=== PATIENT | female | born 1990 | race Caucasian/White ===

== ENCOUNTER 2022-06-01 10:57 | Emergency (ER) | payer OTHER, SELFPAY ==
--- NOTE | ~2022-06-01 | US_ITS ---
EXAMINATION: US OB <=14 wk fetus w TV DATE: 06/01/2022 12:05 INDICATION: Vaginal bleeding during first trimester TECHNIQUE: Real-time pelvic transabdominal and transvaginal ultrasound was performed. COMPARISON: None. FINDINGS: The uterus measures 7.1 x 3.1 x 4.3 cm. No intrauterine gestational sac is identified. The endometrial thickness measures 6 mm The right ovary measures 3.8 x 2.2 x 1.7 cm. The left ovary measu res 2.8 x 1.7 x 2.2 cm. There is normal vascular flow in the ovaries. There is trace free fluid in th e pelvis. IMPRESSION: 1. of unknown location. Although no intrauterine gestational sac is seen, this may be due t o early gestation. If the patient is clinically stable, recommend followup with serial beta-hCG and u ltrasound. Reviewed, dictated and finalized at location B. IMPRESSION: 1. of unknown location. Although no intrauterine gestational sac is s een, this may be due to early gestation. If the patient is clinically stable, r ecommend followup with serial beta-hCG and ultrasound.
[2022-06-01 11:01] VITALS: BP 148/83; PULSE 95; RESP 15; TEMP 36.4; O2SAT 100
--- NOTE | 2022-06-01 11:18 | PC.NURSE ---
EDP at bedside to assess pt.
--- NOTE | 2022-06-01 11:21 | PC.NURSE ---
EDP at bedside to assess pt.
--- NOTE | 2022-06-01 11:22 | ED.FEMALEGU ---
HPI - Female Genitourinary General Chief complaint: Vaginal Bleeding Stated complaint: preg vag bleed Time Seen by Provider: 06/01/22 11:07 History of Present Illness HPI Narrative: Patient is a 32-year-old G1, P0 female who is currently about 6 weeks by her last menstrual cycle (04/16) here for evaluation of vaginal bleeding for the past day. States that she likens the bleeding to a menstrual cycle with some blood clots. Patient reports some diffuse lower abdominal cramping. States that she called her OB office, Dr. Ledezma, who recommended ED evaluation if her bleeding continues. She has not had an ultrasound yet to confirm IUP. Denies any syncope, lightheadedness. Related Data Allergies Allergy/AdvReac Type Severity Reaction Status Date / Time No Known Allergies Allergy Verified 06/01/22 11:22 Review of Systems Review of Systems: Gen: Denies fevers or chills Eyes: Denies eye pain or visual change ENT: Denies congestion Respiratory: Denies shortness of breath or cough CV: Denies chest pain or palpitations GI: Reports lower abdominal pain. Denies nausea, emesis or diarrhea : Reports vaginal bleeding. Denies burning, urgency, frequency or hematuria Musculoskeletal: Denies back pain or muscle pain Neuro: Denies numbness, tingling, weakness or focal weakness Skin: Denies rash Except as documented, all other systems reviewed and negative Exam Narrative: APPEARANCE: Well appearing, no pain in distress, well-nourished. Head: Normocephalic and atraumatic. EYES: PERRLA/EOMI, conjunctivae clear NOSE: No nasal drainage EARS: External ear normal in appearance THROAT: Oropharynx is clear. Mucous membranes are moist. NECK: Supple. No adenopathy, no masses. RESPIRATORY: Airway patent, respirations nonlabored. Clear to auscultation bilaterally, no rales, rhonchi, wheezing. CARDIOVASCULAR: Regular rate and rhythm without murmurs, rubs, or gallops. ABDOMINAL: Normoactive bowel sounds. Soft, nontender, nondistended. No rebound tenderness or guarding. : Exam performed with buncher machine Lanie. Cervical os is closed, moderate amount of blood noted in vaginal vault with no clots. MUSCULOSKELETAL: Extremities are warm and well-perfused. Moves all extremities well. No edema. NEURO: Normal speech. No focal neurologic deficits. SKIN: Skin is warm and dry. No rashes. PSYCHIATRIC: Normal affect/mood. Course Vital Signs Vital signs: Vital Signs Temperature 97.5 F L 06/01/22 11:01 Pulse Rate 95 06/01/22 11:01 Respiratory Rate 15 06/01/22 11:01 Blood Pressure 148/83 H 06/01/22 11:01 Pulse Oximetry 100 06/01/22 11:01 Temperature 97.5 F L 06/01/22 11:01 Pulse Rate 95 06/01/22 11:01 Respiratory Rate 15 06/01/22 11:01 Blood Pressure 148/83 H 06/01/22 11:01 Pulse Oximetry 100 06/01/22 11:01 MDM - Female Genitourinary MDM Narrative Medical decision making narrative: 32-year-old female who is currently about 6 weeks here for evaluation of vaginal bleeding and lower abdominal cramping for the past day. Here, she is nontoxic-appearing, no abdominal tenderness on exam, cervical os is closed with moderate amount of blood in the vaginal vault. Her quant is only 13, and there was no visualized on the ultrasound. She is A+, no indication for RhoGAM. Likely miscarriage. Discussed case with patient's OB Dr. Ledezma, who recommended repeat hCG and he will see in office next week. Informed patient of results and provided anticipatory guidance, gave her reasons to return to the ED and she voiced understanding. Lab Data Result diagrams: 06/01/22 12:01 Labs: Lab Results 06/01/22 06/01/22 06/01/22 Range/Units 12:01 12:01 12:01 WBC 8.2 (4.5-10.0) K/mm3 RBC 4.71 (4.2-5.4) M/mm3 Hgb 14.3 (12.0-15.0) g/dL Hct 43.3 (37.0-47.0) % MCV 91.9 (80-100) fl MCH 30.4 (26-34) pg MCHC 33.0 (32-36) g/dl RDW 12.6 (11.5-14.5) % Plt Count 293
--- NOTE | 2022-06-01 11:33 | PC.NURSE ---
Patient off unit to US.
[2022-06-01 12:08] LABS: Basophils Percent Auto 0.2 % (0.2-1.2); Eosinophils Percent Auto 0.4 % (0-4.4); Hematocrit 43.3 % (37.0-47.0); Hemoglobin 14.3 g/dL (12.0-15.0); Immature Granulocyte Absolute 0.02 K/mm3 (0.00-0.031); Immature Granulocyte Percent A 0.2 % (0-0.5); Lymphocytes Percent Auto 25.6 % (18.3-44.2); Mean Corpuscular Hemoglobin 30.4 pg (26-34); Mean Corpuscular Volume 91.9 fl (80-100); Mean Platelet Volume 10.4 fl (7.4-10.4); Monocytes Absolute Auto 0.5 K/mm3 (0.1-0.6); Monocytes Percent Auto 5.6 % (2.6-8.5); Neutrophils Absolute Auto 5.6 K/mm3 (1.3-6.7); Platelet Count Result 293 k/mm3 (150-375); Red Blood Count 4.71 M/mm3 (4.2-5.4); Red Cell Distribution Width 12.6 % (11.5-14.5); White Blood Count 8.2 K/mm3 (4.5-10.0)
[2022-06-01 12:35] LABS: Beta HCG Quantitative 13.79 mIU/ML
== END 2022-06-01 13:29 | disposition home or self-care (01) ==
PROVIDERS: Physician Assistant; Emergency Provider Emergency Medicine
DX: O20.9 Hemorrhage in early pregnancy, unspecified (principal); Z3A.01 Less than 8 weeks gestation of pregnancy
CPT/HCPCS: 36415; 76801; 76817; 84702; 85025; 85461; 99284

== ENCOUNTER 2022-06-04 06:59 | Outpatient (CLI) | payer OTHER, SELFPAY ==
[2022-06-04 07:57] LABS: Beta HCG Quantitative 2.54 mIU/ML
== END 2022-06-04 07:00 | disposition home or self-care (01) ==
LOC: ANHLAB 07:00
PROVIDERS: Visit Provider Physician Assistant
DX: O20.9 Hemorrhage in early pregnancy, unspecified (principal); Z3A.00 Weeks of gestation of pregnancy not specified
CPT/HCPCS: 36415; 84702

== ENCOUNTER 2022-10-14 16:56 | Outpatient (CLI) | payer OTHER, SELFPAY ==
[2022-10-14 17:54] LABS: Beta HCG Quantitative 569.58 mIU/ML
== END 2022-10-14 16:57 | disposition home or self-care (01) ==
LOC: ANHLAB 16:57
PROVIDERS: Visit Provider Obstetrics & Gynecology
DX: N91.2 Amenorrhea, unspecified (principal)
CPT/HCPCS: 36415; 84702

== ENCOUNTER 2022-10-18 07:09 | Outpatient (CLI) | payer OTHER, SELFPAY | END 2022-10-18 07:10 | disposition home or self-care (01) | LOC: ANHLAB 07:10 | PROVIDERS: Visit Provider Obstetrics & Gynecology | DX: N91.2 Amenorrhea, unspecified (principal) | CPT/HCPCS: 36415; 84702 ==

== ENCOUNTER 2022-11-02 15:52 | Outpatient (RCR) | payer OTHER, SELFPAY ==
[2022-11-02 16:07] LABS: Basophils Percent Auto 0.3 % (0.2-1.2); Eosinophils Absolute Auto 0.1 K/mm3 (0-0.3); Eosinophils Percent Auto 0.5 % (0-4.4); Hematocrit 38.9 % (37.0-47.0); Hemoglobin 13.1 g/dL (12.0-15.0); Immature Granulocyte Absolute 0.03 K/mm3 (0.00-0.031); Immature Granulocyte Percent A 0.3 % (0-0.5); Lymphocytes Absolute Auto 2.89 K/mm3 (0.9-3.2); Mean Corpuscular HGB Conc 33.7 g/dl (32-36); Mean Corpuscular Hemoglobin 30.5 pg (26-34); Mean Corpuscular Volume 90.5 fl (80-100); Mean Platelet Volume 10.2 fl (7.4-10.4); Monocytes Absolute Auto 0.6 K/mm3 (0.1-0.6); Monocytes Percent Auto 5.5 % (2.6-8.5); Neutrophils Absolute Auto 7.5 K/mm3 (1.3-6.7); Neutrophils Percent Auto 67.4 % (45.5-73.1); Platelet Count Result 263 k/mm3 (150-375); Red Cell Distribution Width 12.1 % (11.5-14.5); White Blood Count 11.1 K/mm3 (4.5-10.0)
[2022-11-02 16:57] LABS: Hepatitis B Surface Antigen Negative (Negative)
[2022-11-02 17:03] LABS: HIV 1/2 Ab P24 Ag Result Negative (Negative)
[2022-11-03 16:15] LABS: Rapid Plasma Reagin Non-Reactive (NonReactive)
== END 2023-01-31 23:59 | disposition home or self-care (01) ==
LOC: ANHLAB 15:52
PROVIDERS: Visit Provider Student in an Organized Health Care Education/Training Program
DX: Z11.4 Encounter for screening for human immunodeficiency virus [HIV] (principal); N91.2 Amenorrhea, unspecified
CPT/HCPCS: 36415; 84702; 85025; 86592; 86644; 86703; 86747; 86787; 86850; 86900; 86901; 87086; 87340; G0432

== ENCOUNTER 2023-04-02 07:29 | Outpatient (CLI) | payer OTHER, SELFPAY ==
[2023-04-02 08:59] LABS: Hematocrit 36.6 % (37.0-47.0); Hemoglobin 12.2 g/dL (12.0-15.0); Mean Corpuscular HGB Conc 33.3 g/dl (32-36); Mean Corpuscular Hemoglobin 31.1 pg (26-34); Mean Corpuscular Volume 93.4 fl (80-100); Mean Platelet Volume 10.1 fl (7.4-10.4); Platelet Count Result 225 k/mm3 (150-375); Red Blood Count 3.92 M/mm3 (4.2-5.4); White Blood Count 11.6 K/mm3 (4.5-10.0)
[2023-04-02 09:09] LABS: Glucose 1 Hour PP 50gm Dose 120 mg/dL
[2023-04-02 09:51] LABS: HIV 1/2 Ab P24 Ag Result Negative (Negative)
== END 2023-04-02 07:30 | disposition home or self-care (01) ==
LOC: ANHLAB 07:30
PROVIDERS: Visit Provider Student in an Organized Health Care Education/Training Program
DX: Z34.90 Encounter for supervision of normal pregnancy, unspecified, unspecified trimester (principal)
CPT/HCPCS: 36415; 82947; 85027; 86703; G0432

== ENCOUNTER 2023-06-21 17:01 | Inpatient (IN) | payer OTHER, SELFPAY ==
[2023-06-21] VITALS (16 sets, daily range): BP systolic 110–125; BP diastolic 74–90; PULSE 72–95; TEMP 36.3–36.8; BMI 34.4
--- NOTE | 2023-06-21 18:00 | LDADM ---
This patient, Ree Fang, was admitted to Labor/Delivery/Recovery 103 on 06/21/23 at 17:01. Plans for labor, pain management and were discussed with patient. Patient/family oriented to hospital policies and general routines including ID bracelet, bed and alarms, visiting hours, pain management, procedures, bathroom and other care routines, personal items, smoking policy, room service/diet and guest tray routines, security routines, and visiting hours. Patient/Family are encouraged to report perceived risks to care and to ask questions if they do not understand what they are told or what they should do. See OBIX for further documentation.
--- NOTE | 2023-06-21 18:18 | WPDANESEPP ---
Anes - Eval Pre Procedure Procedure: labor epidural Date/Time: 06/21/23 18:18 Surgeon: lizbet Preop Diagnosis: pain during labor Pre Op Diagnosis: Induction of Labor Patient Data Age: 33 Gender: F Height: 1.68 m Weight: 97 kg Last Vital Signs Temp 36.8 C 06/21/23 17:42 Pulse 82 06/21/23 18:15 BP 119/79 06/21/23 18:15 Allergies Allergy/AdvReac Type Severity Reaction Status Date / Time No Known Allergies Allergy Verified 06/20/23 09:47 Home Medications Medication Instructions Recorded Confirmed Type vitamins-iron fumarate 65 1 tablet PO DAILY 06/07/22 05/23/23 History mg iron-folic acid 1 mg tablet Laboratory Tests 06/21/23 17:30 WBC Pending RBC Pending Hgb Pending Hct Pending MCV Pending MCH Pending MCHC Pending RDW Pending Plt Count Pending MPV Pending Immature Gran % (Auto) Pending Neut % (Auto) Pending Lymph % (Auto) Pending [place] % (Auto) Pending Eos % (Auto) Pending Baso % (Auto) Pending Lymph # (Auto) Pending [place] # (Auto) Pending Eos # (Auto) Pending Baso # (Auto) Pending Abs Immat Gran (auto) Pending Absolute Neuts (auto) Pending Absolute Nucleated RBC Pending Nucleated RBC % Pending RPR Pending Rubella IgG Antibody Pending Patient hx anesthesia problems: none Family hx anesthesia problems: none Results Review: All pre-operative results and documents have been reviewed as part of the pre-operative evaluation. [facility] Past Medical History Medical History (Updated 06/21/23 @ 18:19 by Hoa Sal CRNA) Amenorrhea IUP (intrauterine ), incidental Obesity (BMI 30-39.9) Surgical History Surgical History H/O removal of cyst cyst removed from chest on left side / Benign Family History Family History Father Hypertension Social History Social History Smoking status: Never smoker Second hand tobacco smoke exposure: No Alcohol intake: never Substance use: never Lack of Transportation: No Lack of Food: Never True Current Housing: I Have Housing Concerned About Future Housing: No Difficulty Paying Gas/Electric Bills: No Difficulty Paying for Meds: No Currently Unemployed: No Education: Bachelor's Degree Difficulty w/ Childcare or Family Care: No Living arrangements: with family Occupation/Education: occupation Gender identity (if verbalized by the patient): Female Sexual Orientation (if Verbalized by the Patient): Straight or Heterosexual Spiritual care concerns: No Exam Day of Procedure 06/21/23 18:18
[2023-06-21 18:20] LABS: Basophils Percent Auto 0.2 % (0.2-1.2); Eosinophils Absolute Auto 0.3 K/mm3 (0-0.3); Hematocrit 34.3 % (37.0-47.0); Hemoglobin 11.5 g/dL (12.0-15.0); Immature Granulocyte Absolute 0.12 K/mm3 (0.00-0.031); Immature Granulocyte Percent A 0.9 % (0-0.5); Lymphocytes Absolute Auto 2.25 K/mm3 (0.9-3.2); Lymphocytes Percent Auto 17.6 % (18.3-44.2); Mean Corpuscular HGB Conc 33.5 g/dl (32-36); Mean Corpuscular Hemoglobin 30.7 pg (26-34); Mean Corpuscular Volume 91.7 fl (80-100); Mean Platelet Volume 11.7 fl (7.4-10.4); Monocytes Absolute Auto 0.7 K/mm3 (0.1-0.6); Monocytes Percent Auto 5.7 % (2.6-8.5); Neutrophils Absolute Auto 9.4 K/mm3 (1.3-6.7); Neutrophils Percent Auto 73.6 % (45.5-73.1); Platelet Count Result 207 k/mm3 (150-375); Red Blood Count 3.74 M/mm3 (4.2-5.4); White Blood Count 12.8 K/mm3 (4.5-10.0)
[2023-06-21] MEDS: DINOPROSTONE 10 MG VAG INSERT VAGINAL (20:00)
[2023-06-22] VITALS (124 sets, daily range): BP systolic 89–144; BP diastolic 62–109; PULSE 65–197; TEMP 36.3–37.2; O2SAT 83–100
[2023-06-22] MEDS: miSOPROStol 25 MCG TABLET VAGINAL (07:08)
--- NOTE | 2023-06-22 08:01 | WPDHPUPDATE1 ---
History and Physical Update Update Date/Time: 06/22/23 08:01 33 yo at 40w2d who presents for IOL. Pt's has been uncomplicated thus far. History and Physical has been reviewed, including an updated exam of the patient. There are NO changes in the patient's condition. Risks, benefits, and alternatives have been discussed and questions answered. Patient agrees to proceed with procedure. A/P: admit to L&D routine admission orders Rh+ GBS neg plan for cervidil IOL continuous EFM
[2023-06-22] MEDS: OXYTOCIN 30 UNITS/NS 500 ML 30 UNITS/500 ML BAG IV CONT (11:21)
[2023-06-22] MEDS: LACTATED RINGERS 1,000 ML 125 ML IV CONT ×4 (11:21→23:39)
[2023-06-22 13:53] LABS: Rapid Plasma Reagin Non-Reactive (NonReactive)
[2023-06-22] MEDS: SODIUM CHLORIDE 0.9% IV 300 ML 180 ML I-UTERINE (23:03)
[2023-06-23] VITALS (110 sets, daily range): BP systolic 103–149; BP diastolic 49–110; PULSE 78–156; RESP 16; TEMP 36.9–38.1; O2SAT 84–100
--- NOTE | 2023-06-23 06:29 | PM.OBPRVD ---
OB - Delivery Note Procedure Procedure: Patient pushed for a spontaneous vaginal delivery. Body cord was noted x 1 and reduced on the perineum. The fetus was delivered atraumatically and placed on the maternal abdomen. The cord was clamped and cut after 1 minute of life. The cord was double clamped and cut and a segment of cord was collected for cord gases. Cord blood was collected for blood type and Coomb's testing. The placenta delivered spontaneously and was noted to be intact. The perineum was inspected and there was a 2nd degree perineal laceration. The laceration was repaired with 2-0 vicryl in the usual fashion. The uterus was firm and good hemostasis was noted. The patient and fetus were stable in the delivery room. Induction method: Per Cervidil Protocol Delivery augmentation: Rupture of Membranes and Pitocin Delivery monitor: External FHT Route of delivery: Episiotomy description: None Laceration Description: Perineal - 2nd Degree Delivery repair: vicryl Specimen: No Quantitative Blood Loss (ml): 500 Anesthesia type: Epidural Disposition: Floor () Complications: No immediate complications Baby Date of : 06/23/23 Time of : 06:06 Weeks of gestation at delivery: 40 Infant gender: Male presentation: vertex position: Right Occiput Anterior Placenta delivery description: Spontaneous Cord Vessel Description: 3 Vessels, Tight and Around Body score one minute: 8 score five minutes: 9 AMG Delivery Billing Delivery Delivery: Delivery Charge
[2023-06-23] MEDS: miSOPROStol 200 MCG TABLET 1000 MCG RECTAL (06:33)
[2023-06-23] MEDS: OXYTOCIN 30 UNITS/NS 500 ML 30 UNITS/500 ML BAG 125 UNITS IV CONT (06:39)
--- NOTE | 2023-06-23 09:45 | PC.NURSE ---
Patient transferred to post room #278 via wheelchair. Support person present. Oriented to unit, room, information board, rooming in, admission packet and security measures. Patient verbalizes understanding.
--- NOTE | 2023-06-23 15:28 | PC.NURSE ---
[phone] Introductions were made, then consulted with patient to assess needs related to . Resources provided for inpatient and outpatient services with the feeding sheet, mom/baby guide and name written on the white board. Reviewed [id number] benefits and watching for feeding cues visuals. Mother voiced understanding of information and will call if there is a request for assistance. Reported to the primary RN. [phone] Consult requested. Mother led the conversation with her?plans to feed?her infant and the?experience so far. Mother works well with her with encouragement. Parents are undressing their to encourage wakefulness. Encouraged stimulating with massage touch, changing positions to encourage wakefulness, burping and checking the diaper. was given time upright [id number] on mother's chest to practice self attaching. Infant latched well to the left breast with mother in the laid-back cross cradle position. Mother denies pain and states there is sensitivity rated 2 on 0-10 pain scale. Education given to the parent of how to visualize suck/swallow ratios and listen for drinking at the breast which is demonstrating. Infant self detached after 10-15 minutes. Left nipple was slightly misshaped. Mother is encouraged to practice different positioning while infant is learning the optimal latching. Infant was moved upright [id number] with mother until feeding cues are visualized. Mother is open to practicing the football positioning. Reviewed positioning and ear, shoulder, hip alignment, supporting the breast to facilitate a deep latch, asymmetrical latch (off-center), leading with the chin with a big, open, wide gape and body close to mother. latches well but at times latches more to the nipple and parents were given education and demonstration of how to position mother, and support breast to encourage deep latching with areola to protect the nipple. Infant latched optimally to the right breast in football position. Education given to mother of how to visualize suck/swallow ratios and listen for drinking at the breast. was able to maintain latch without discomfort to mother. Nipple care reviewed with optimal latch and good positioning. self detached after 10-15 minutes. Nipple was very slightly misshaped and mother was encouraged to latch deep with changing positions each feeding to protect the nipple while learning. Reviewed good handwashing when or touching the breast/nipples to prevent infection. Resources used to facilitate learning were used with the tool, mom and baby guide. Mother voiced understanding of skin to skin, stimulating with massage touch, responsive feedings, hand expressed colostrum, talking to infant to encourage if it has been 2 -2.5 hours since the start of the last , to call if does not latch, or if there is discomfort with . Resources provided for inpatient/outpatient with feeding sheet, name remains on the communication board and the mom/baby guide. Parents voiced understanding of information, demonstrated learning and will call if there is a request for assistance. Reported to the Primary RN.
[2023-06-23] MEDS: DOCUSATE SODIUM 100 MG CAPSULE PO (18:25)
[2023-06-23] MEDS: POLYSACCHARIDE IRON COMPLEX 150 MG CAPSULE PO (18:25)
[2023-06-23] MEDS: ACETAMINOPHEN 325 MG TABLET 650 MG PO (18:26)
--- NOTE | 2023-06-23 18:39 | PM.OBDSVD ---
DS: Admitting Diagnosis Discharge Date 06/24/23 Admitting Diagnosis intrauterine at term DS: Discharge Diagnosis Discharge Diagnosis (1) Supervision of high risk , unspecified, unspecified trimester: Code(s): O09.90 - Supervision of high risk , unspecified, unspecified trimester Status: Acute OB - DS: Summary OB Procedures : None OB Procedures Intrapartum: Spontaneous Vag Delivery OB Procedures: : None Status at Discharge Functional status at discharge: independent ambulation Overall status at discharge: patient is back to baseline Time Spent with Patient Time attestation: Total time spent providing and/or coordinating discharge services: Time spent: Less than 30 minutes Exam Const: General: comfortable and no acute distress Resp: Effort & Inspection: normal respiratory effort Auscultation: clear to auscultation bilaterally Cardio: Rate: regular rate GI: GI Palp: Yes Soft to palpation Auscultation: normal bowel sounds Other: Fundus firm below umbilicus Psych: Appearance: grossly normal Mental Status: mental status grossly normal Affect: normal affect Discharge Plan Discharge Discharging Clinician: Robi Ledezma Patient Disposition: Home, Self-Care Activity: as tolerated and pelvic rest Diet: regular Discharge Instructions: Education: Mom and Baby Guide Given to: Mother Follow-Up: Call your delivering provider's office for an appointment to be seen in: 6 Weeks Mom and baby should come to the [facility] for the follow-up appointment. Appointment Date/Time: June 27, 2023 at 11:00 am What to expect at your follow-up visit: Blood Pressure Check Call [phone] if you are unable to keep your appointment time. BREAST CARE: * Wear a snug supportive bra. * For engorgement discomfort: Breast Feeding: * Apply warm moist washcloths * Express milk as needed to relieve engorgement * Wear loose clothing * For sore nipples: * Identify correct latch-on * Apply warm moist washcloths before and after nursing * Air dry nipples after nursing * May apply Lansinoh cream to nipples EPISIOTOMY/PERINEAL CARE: * Until bleeding stops, use your roger bottle after urinating * Change your pad frequently throughout the day * You may take sitz baths several times a day (fill your bathtub with warm water and soak for 20 minutes.) Do NOT bathe in the water * No tub baths until seen by your physician - You may shower ACTIVITY: * Rest as much as possible. * Do not exercise or lift anything heavier than your baby (such as laundry or other children.) * Avoid stairs or driving as much as possible. * Do not put anything into the vagina. No douching, tampons, or sexual activity until seen by physician. NOTIFY PHYSICIAN IF YOU HAVE ANY QUESTIONS OR IF ANY OF THE FOLLOWING SYMPTOMS OCCUR: * If your episiotomy or incision becomes red, swollen, or more painful than what you have experienced in the hospital. * If your vaginal bleeding becomes foul smelling. * If your vaginal bleeding becomes more heavy than a period or if your bleeding changes from pink to bright red. However, you may pass an occasional walnut-sized clot once or twice for the first week . * If you experience a sharp, shooting pain in you calves. * If you discover a hard, reddened area on your breast or if you experience flu-like symptoms. DIET: * Eat regular, well-balanced meals. * Drink plenty of fluids daily. If , drink to thirst. Patient viewed the discharge video Mother & Baby Care, The First Two Weeks . Patient was given the opportunity and encouraged to ask questions. Patient verbalized understanding of information shared and has been given the mother/baby guide for home reference. Patient Instructions: Antibiotic Form, Vaginal Delivery (DC) St
[2023-06-24] VITALS: BP 118/72; PULSE 101; RESP 16; TEMP 36.7; O2SAT 100
[2023-06-24 04:15] VITALS: BP 119/73; PULSE 92; RESP 16; TEMP 37.4; O2SAT 100
[2023-06-24 05:49] LABS: Hematocrit 25.3 % (37.0-47.0); Hemoglobin 8.4 g/dL (12.0-15.0)
[2023-06-24] MEDS: ACETAMINOPHEN 325 MG TABLET 650 MG PO (06:04)
[2023-06-24 07:20] VITALS: BP 124/83; PULSE 81; RESP 16; TEMP 36.8; O2SAT 100
[2023-06-24] MEDS: DOCUSATE SODIUM 100 MG CAPSULE PO (07:41)
[2023-06-24] MEDS: LANOLIN (LANSINOH) 7.5 GM CREAM 1 APPLIC TOPICAL (07:41)
[2023-06-24] MEDS: MULTIVIT/MIN/PREN/FOL AC/IRON TABLET 1 TAB PO (07:41)
[2023-06-24] MEDS: POLYSACCHARIDE IRON COMPLEX 150 MG CAPSULE PO (07:41)
--- NOTE | 2023-06-24 08:22 | WPDANLDPN2 ---
Anes-Prog Note L&D Date/Time: 06/24/23 08:22 Neuro status: Neuro function grossly intact. Vital Signs: Last Vital Signs Temp 37.4 C 06/24/23 04:15 Pulse 92 06/24/23 04:15 Resp 16 06/24/23 04:15 BP 119/73 06/24/23 04:15 Pulse Ox 100 06/24/23 04:15 O2 Del Method Room Air 06/24/23 04:15 Pain score (VAS): 0 Patient feedback: Patient satisfied with anesthetic care.
--- NOTE | 2023-06-24 12:20 | PM.OBDSVD ---
DS: Admitting Diagnosis Discharge Date 06/25/2023 Admitting Diagnosis OB - DS: Summary OB Procedures : None OB Procedures Intrapartum: Spontaneous Vag Delivery OB Procedures: : None Time Spent with Patient Time attestation: Total time spent providing and/or coordinating discharge services: DS: Data Data Completed and Pending Labs on day of discharge: Labs from last 24 hours 06/24/23 05:30 Hgb 8.4 L D Hct 25.3 L Discharge Plan Discharge Discharging Clinician: Robi Ledezma Patient Disposition: Home, Self-Care Activity: as tolerated and pelvic rest Diet: regular Patient Instructions: Antibiotic Form, Vaginal Delivery (DC) Stand Alone Forms: General Discharge Information Follow-up/Referrals: Luís Villalobos MD [Physician] - Discharge Medications: New ibuprofen 600 mg Tablet 600 mg PO Q6H PRN (Reason: Cramping) Qty: 30 0RF acetaminophen 500 mg tablet 500 mg PO Q6H PRN (Reason: pain) Qty: 30 0RF Continued vit-iron fum-folic ac 65 mg iron- 1 mg tablet 1 tablet PO DAILY Date of admission: 06/21/23 17:01 Primary Care Provider: PHYSICIAN,CUSTOMER DEVELOPMENT MANAGER Admitting Provider: Luís Villalobos Attending physician on admission: Luís Villalobos Condition: Stable
--- NOTE | 2023-06-24 13:04 | PC.NURSE ---
[phone] Mother led the conversation with her experience and plan to feed her so far and her ability to independently latch optimally without discomfort. Reminded parents to use good handwashing technique to prevent infection. Mother is feeding appropriately for growth of and understands stimulating to eat if needed. Infant has had appropriate feedings in the last 24 hours meets the outcomes for weight, output and jaundice at this time. Mother states she is confident to continue effectively her infant at home, when to call for assistance and denies any additional assistance or education at this time. Reinforced understanding of milk production, transition of milk, signs of adequate intake, transition of stool, prevention/relief of engorgement, plugged ducts, mastitis, responsive watching for feeding cues, the different methods of stimulating to breastfeed 2-3 hours after the start of the last feeding, community resources, medication information reviewed per [employer] and when to call a provider using the resource of the mom and baby guide/[facility] website. Mother voiced understanding of the education shared. Reported to the primary RN.
[2023-06-24 20:00] VITALS: BP 119/76; PULSE 105; TEMP 37; O2SAT 18
[2023-06-25] MEDS: MULTIVIT/MIN/PREN/FOL AC/IRON TABLET 1 TAB PO (07:44)
[2023-06-25] MEDS: POLYSACCHARIDE IRON COMPLEX 150 MG CAPSULE PO (07:44)
[2023-06-25 07:45] VITALS: BP 114/79; PULSE 86; RESP 16; RESP 18; TEMP 36.9; O2SAT 97
[2023-06-27 11:25] VITALS: BP 123/80; PULSE 81; RESP 18; TEMP 37.3; O2SAT 100
== END 2023-06-25 11:57 | disposition home or self-care (01) | DRG 807 ==
LOC: ANHLDR 17:05 → ANHOB2 06-23 09:47
PROVIDERS: Admitting Provider Student in an Organized Health Care Education/Training Program; Visit Provider Student in an Organized Health Care Education/Training Program
DX: O69.2XX0 Labor and delivery complicated by other cord entanglement, with compression, not applicable or unspecified (principal); Z37.0 Single live birth; Z3A.40 40 weeks gestation of pregnancy; O70.1 Second degree perineal laceration during delivery
CPT/HCPCS: 36415; 85014; 85018; 85025; 86592; 86762; 86850; 86900; 86901; A9270; J2590; J2795; J7030; J7120

== ENCOUNTER 2023-06-27 11:39 | Outpatient (CLI) | payer OTHER, SELFPAY ==
[2023-06-27] MEDS: MEASLES,MUMPS,RUBELLA VACCINE 0.5 ML VIAL SUB-Q (12:02)
== END 2023-06-27 11:40 | disposition home or self-care (01) ==
LOC: ANHOBOP 11:43
PROVIDERS: Visit Provider Student in an Organized Health Care Education/Training Program
DX: Z23 Encounter for immunization (principal)
CPT/HCPCS: 90471; 90710

== ENCOUNTER 2024-06-18 16:32 | Outpatient (CLI) | payer BC, SELFPAY ==
[2024-06-18 17:08] LABS: Basophils Percent Auto 0.3 % (0.2-1.2); Eosinophils Absolute Auto 0.1 K/mm3 (0-0.3); Eosinophils Percent Auto 1.5 % (0-4.4); Hemoglobin 13.2 g/dL (12.0-15.0); Immature Granulocyte Absolute 0.04 K/mm3 (0.00-0.031); Immature Granulocyte Percent A 0.4 % (0-0.5); Lymphocytes Absolute Auto 2.56 K/mm3 (0.9-3.2); Mean Corpuscular HGB Conc 33.8 g/dl (32-36); Mean Corpuscular Hemoglobin 30.3 pg (26-34); Mean Corpuscular Volume 89.4 fl (80-100); Mean Platelet Volume 10.7 fl (7.4-10.4); Monocytes Absolute Auto 0.6 K/mm3 (0.1-0.6); Neutrophils Absolute Auto 6.2 K/mm3 (1.3-6.7); Neutrophils Percent Auto 64.8 % (45.5-73.1); Platelet Count Result 259 k/mm3 (150-375); Red Blood Count 4.36 M/mm3 (4.2-5.4); Red Cell Distribution Width 12.6 % (11.5-14.5); White Blood Count 9.5 K/mm3 (4.5-10.0)
[2024-06-18 18:21] LABS: HIV 1/2 Ab P24 Ag Result Negative (Negative)
[2024-06-18 19:03] LABS: Hepatitis B Surface Antigen Negative (Negative); Rubella IgG Antibody 21.6 IU/ML
[2024-06-19 12:10] LABS: Rapid Plasma Reagin Non-Reactive (NonReactive)
== END 2024-06-18 16:33 | disposition home or self-care (01) ==
LOC: ANHLAB 16:33
PROVIDERS: Visit Provider Student in an Organized Health Care Education/Training Program
DX: Z34.90 Encounter for supervision of normal pregnancy, unspecified, unspecified trimester (principal)
CPT/HCPCS: 36415; 84702; 85025; 86592; 86644; 86703; 86747; 86762; 86787; 86850; 86900; 86901; 87086; 87340; G0432

== ENCOUNTER 2025-01-29 05:58 | Inpatient (IN) | payer BC, SELFPAY ==
[2025-01-29] VITALS (106 sets, daily range): BP systolic 86–124; BP diastolic 49–91; PULSE 47–126; RESP 18; TEMP 36.9–37.4; O2SAT 83–100; BMI 33.4
--- OUTSIDE RECORDS SUMMARY | 2025-01-29 06:03 | XMS_ITS | Encounter Summary ---
Author Organization [facility] Address 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
--- OUTSIDE RECORDS SUMMARY | 2025-01-29 06:03 | XMS_ITS | Encounter Summary ---
Author Organization [facility] Address [address] [place] [address] Care Team Providers Care Guide Foreign Tour Name Role Phone Suha Baker MD Primary Care Provider [phone] Encounter Details Date Type Department Care Team (Late st Contact Info) Description 04/11/2000 Outpatient Historical [facility] - [facility] [address] [id number] Anaid Robertson MD NO ADDRESS ON FILE Social History Tobacco Use Types Packs/Day Years Used Date Smoking Tobacco: Never Assessed Comments Unknown Sex and Gender Information Value Date Recorded Sex Assigned at Not on file Legal Sex Female 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
--- OUTSIDE RECORDS SUMMARY | 2025-01-29 06:03 | XMS_ITS | Encounter Summary ---
Author Organization [facility] Address [address] [place] [address] Care Team Providers Care Rn Oncology Clinical Name Role Phone Suha Baker MD Primary Care Provider [phone] Encounter Details Date Type Department Care Team (Late st Contact Info) Description 08/28/2001 Outpatient Historical [facility] - [facility] [address] [phone] Anaid Robertson MD NO ADDRESS ON FILE Social History Tobacco Use Types Packs/Day Years Used Date Smoking Tobacco: Never Assessed Comments Unknown Sex and Gender Information Value Date Recorded Sex Assigned at Not on file 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
--- OUTSIDE RECORDS SUMMARY | 2025-01-29 06:03 | XMS_ITS | Encounter Summary ---
Author Organization [facility] Address [address] [place] [address] Care Team Providers Care Floral Designer Name Role Phone Suha Baker MD Primary Care Provider [phone] Encounter Details Date Type Department Care Team (Late st Contact Info) Description 05/17/2000 Outpatient Historical [facility] Pediatrics - [facility] [address] [facility] [address] [address] Lindsey Santa MD 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
--- OUTSIDE RECORDS SUMMARY | 2025-01-29 06:03 | XMS_ITS | Encounter Summary ---
Author Organization [facility] Address [address] [place] [address] Care Team Providers Care Handicapped Teacher Name Role Phone Suha Baker MD Primary Care Provider [phone] Encounter Details Date Type Department Care Team (Late st Contact Info) Description 06/25/2003 Outpatient Historical [facility] Pediatrics - [facility] [place] [address] [facility] [address] [place] [address] Lindsey Santa MD [address] [place] [address] Social History Tobacco Use Types Packs/Day Years Used Date Smoking Tobacco: Never Assessed Comments Unknown Sex and Gender Information Value Date Recorded Sex Assigned at Not on file Legal Sex Female 5:13 AM SLIP FEEDER Gender Identity Not on file Sexual Orientation Not on file documented as of this encounter Plan of Treatment Not on file documented as of this encounter Visit Diagnoses Not on filedocumented in this encounter Care Teams Handicapped Teacher Relationship Specialty Start Date End Date Suha Baker MD PCP - General Internal Medicine 04/20/13 documented as of this encounter
--- OUTSIDE RECORDS SUMMARY | 2025-01-29 06:03 | XMS_ITS | Encounter Summary ---
Author Organization [facility] Address [address] [place] [address] Care Team Providers Care Auto Body Service Mechanic Name Role Phone Suha Baker MD Primary Care Provider [phone] Encounter Details Date Type Department Care Team (Late st Contact Info) Description 09/07/1999 Outpatient Historical [facility] Pediatrics - [facility] [address] [facility] [address] [place] [address] Marco Michael MD [address] [facility] [address] [place] [address] Social History Tobacco Use Types Packs/Day Years Used Date Smoking Tobacco: Never Assessed Comments Unknown Sex and Gender Information Value Date Recorded Sex Assigned at Not on file Legal Sex Female 5:13 AM UTILITIES GROUND WORKER Gender Identity Not on file Sexual Orientation Not on file documented as of this encounter Plan of Treatment Not on file documented as of this encounter Visit Diagnoses Not on filedocumented in this encounter Care Teams Auto Body Service Mechanic Relationship Specialty Start Date End Date Suha Baker MD PCP - General Internal Medicine 04/20/13 documented as of this encounter
--- OUTSIDE RECORDS SUMMARY | 2025-01-29 06:03 | XMS_ITS | Encounter Summary ---
Author Organization [employer] Address [address] [place] [address] Care Team Providers Care Refrigeration Manager Name Role Phone Suha Baker MD Primary Care Provider [phone] Encounter Details Date Type Department Care Team (Latest Contact Info) Description 08/30/2002 Outpatient Historical [facility] [address] Marco Michael MD [address] [place] [address] [address] [place] [address] ACUTE PHARYNGITIS (Primary Dx) Social History Tobacco Use Types Packs/Day Years Used Date Smoking Tobacco: Never Assessed Comments Unknown Sex and Gender Information Value Date Recorded Sex Assigned at Not on file Legal Sex Female 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
--- OUTSIDE RECORDS SUMMARY | 2025-01-29 06:04 | XMS_ITS | Encounter Summary ---
Author Organization [facility] Address [address] [place] [address] Care Team Providers Care Molding Associate Name Role Phone Suha Baker MD Primary Care Provider [phone] Encounter Details Date Type Department Care Team (Latest Contact Info) Description 05/13/2007 Outpatient Historical [facility] Pediatrics - [facility] [address] [facility] [address] [address] Anaid Robertson MD NO ADDRESS ON FILE Acute Pharyngitis (Primary Dx) Social History Tobacco Use Types Packs/Day Years Used Date Smoking Tobacco: Never Assessed Comments Unknown Sex and Gender Information Value Date Recorded Sex Assigned at Not on file Legal Sex Female 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
--- OUTSIDE RECORDS SUMMARY | 2025-01-29 06:04 | XMS_ITS | Encounter Summary ---
Author Organization [facility] Address [address] [place] [address] Care Team Providers Care Shoulder Joiner Name Role Phone Suha Baker MD Primary Care Provider [phone] Encounter Details Date Type Department Care Team (Late st Contact Info) Description 10/22/2003 Outpatient Historical [facility] Pediatrics - [facility] [address] [facility] [address] [address] Man Salazar MD NO ADDRESS ON FILE Social History Tobacco Use Types Packs/Day Years Used Date Smoking Tobacco: Never Assessed Comments Unknown Sex and Gender Information Value Date Recorded Sex Assigned at Not on file Legal Sex Female 5:13 AM PARACHUTE ACCESSORIES ATTACHER Gender Identity Not on file Sexual Orientation Not on file documented as of this encounter Plan of Treatment Not on file documented as of this encounter Visit Diagnoses Not on filedocumented in this encounter Care Teams Shoulder Joiner Relationship Specialty Start Date End Date Suha Baker MD PCP - General Internal Medicine 04/20/13 documented as of this encounter
--- OUTSIDE RECORDS SUMMARY | 2025-01-29 06:04 | XMS_ITS | Encounter Summary ---
Author Organization [facility] Address [address] [place] [address] Care Team Providers Care Marketing Services Manager Name Role Phone Suha Baker MD Primary Care Provider [phone] Encounter Details Date Type Department Care Team (Latest Contact Info) Description 04/26/2006 Outpatient Historical [facility] Lindsey Harrison MD [address] [place] [address] Scoliosis (and Kyphoscoliosis), Idiopathic (Primary Dx) Social History Tobacco Use Types Packs/Day Years Used Date Smoking Tobacco: Never Assessed Comments Unknown Sex and Gender Information Value Date Recorded Sex Assigned at Not on file Legal Sex 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
--- OUTSIDE RECORDS SUMMARY | 2025-01-29 06:04 | XMS_ITS | Encounter Summary ---
Author Organization [facility] Address [address] [place] [address] Care Team Providers Care Academic Success Coordinator Name Role Phone Suha Baker MD Primary Care Provider [phone] Encounter Details Date Type Department Care Team (Late st Contact Info) Description 01/15/2002 Outpatient Historical [facility] Pediatrics - [facility] [address] [facility] [address] [address] Anaid Robertson MD NO ADDRESS ON FILE Social History Tobacco Use Types Packs/Day Years Used Date Smoking Tobacco: Never Assessed Comments Unknown Sex and Gender Information Value Date Recorded Sex Assigned at Not on file Legal Sex Female 5:13 AM CUSTOMS INSPECTOR Gender Identity Not on file Sexual Orientation Not on file documented as of this encounter Plan of Treatment Not on file documented as of this encounter Visit Diagnoses Not on filedocumented in this encounter Care Teams Academic Success Coordinator Relationship Specialty Start Date End Date Suha Baker MD PCP - General Internal Medicine 04/20/13 documented as of this encounter
--- OUTSIDE RECORDS SUMMARY | 2025-01-29 06:04 | XMS_ITS | Encounter Summary ---
Author Organization [facility] Address [address] [place] [address] Care Team Providers Care Animal Attendants And Trainers Name Role Phone Suha Baker MD Primary Care Provider [phone] Encounter Details Date Type Department Care Team (Latest Contact Info) Description 06/22/2007 Outpatient Historical [facility] Marco Sheth MD [address] [place] [address] [address], [place] [address] Thoracogenic Scoliosis (Primary Dx) Social History Tobacco Use Types Packs/Day Years Used Date Smoking Tobacco: Never Assessed Comments Unknown Sex and Gender Information Value Date Recorded Sex Assigned at Not on file Legal Sex Female 5:13 AM ADULT DAY CARE WORKER Gender Identity Not on file Sexual Orientation Not on file documented as of this encounter Plan of Treatment Not on file documented as of this encounter Visit Diagnoses Diagnosis Thoracogenic scoliosis- Primary documented in this encounter Care Teams Animal Attendants And Trainers Relationship Specialty Start Date End Date Suha Baker MD PCP - General Internal Medicine 04/20/13 documented as of this encounter
--- OUTSIDE RECORDS SUMMARY | 2025-01-29 06:04 | XMS_ITS | Encounter Summary ---
Author Organization [facility] Address [address] [place] [address] Care Team Providers Care Manager Interface Name Role Phone Suha Baker MD Primary Care Provider [phone] Encounter Details Date Type Department Care Team (Late st Contact Info) Description 08/29/2007 Outpatient Historical [facility] Pediatrics - [facility] [address] [facility] [address] [place] [address] Marco Michael MD [address] [facility] [address] [place] [address] Social History Tobacco Use Types Packs/Day Years Used Date Smoking Tobacco: Never Assessed Comments Unknown Sex and Gender Information Value Date Recorded Sex Assigned at Not on file Legal Sex Female 5:13 AM ORE TRIMMER Gender Identity Not on file Sexual Orientation Not on file documented as of this encounter Plan of Treatment Not on file documented as of this encounter Visit Diagnoses Not on filedocumented in this encounter Care Teams Manager Interface Relationship Specialty Start Date End Date Suha Baker MD PCP - General Internal Medicine 04/20/13 documented as of this encounter
--- OUTSIDE RECORDS SUMMARY | 2025-01-29 06:04 | XMS_ITS | Encounter Summary ---
Author Organization [facility] Address [address] [place] [address] Care Team Providers Care Pumping Station Supervisor Name Role Phone Suha Baker MD Primary Care Provider [phone] Encounter Details Date Type Department Care Team (Late st Contact Info) Description 01/05/[address] [facility] Pediatrics - [facility] [address] [facility] [address] [place] [address] Marco Michael MD [address] 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
--- OUTSIDE RECORDS SUMMARY | 2025-01-29 06:04 | XMS_ITS | Encounter Summary ---
Author Organization [facility] Address 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 Gender Identity Not on file Sexual Orientation Not on file documented as of this encounter Plan of Treatment Not on file documented as of this encounter Procedures Procedure Name Priority Date/Time Associated Diagnosis Comments T4 TOTAL Routine 05/22/2005 9:15 AM CDT CBC WITH DIFFERENTIAL Routine 05/22/2005 9:15 AM CDT CBC WITH DIFFERENTIAL Routine 05/22/2005 9:15 AM CDT TSH Routine 05/22/2005 9:15 AM CDT CHOLESTEROL TOTAL Routine 05/22/2005 9:1 5 AM CDT LIPID PANEL Routine 05/22/2005 9:15 AM CDT COMPREHENSIVE METABOLIC PANEL Routine 05/22/2005 9:15 AM CDT documented in this encounter Results * T4 TOTAL (05/22/2005 9:15 AM CDT) T4 TOTAL 5.8 4.5 - 12.5 ug/dL INTERFACE SYSTEM Comment: Lab test performed by: [id number] [id number] YADY EPPERSON MD 05/22/2005 9:15 AM CDT us Lindsey Santa MD CHEMISTRY ORDERABLES Final Resu lt Performing Organization Address [facility] de Phone Number INTERFACE SYSTEM Refer to clinic/hospital department * CBC WITH DIFFERENTIAL (05/22/2005 9:15 AM CDT) NEUTROPHILS 48 36 - 74 % INTERFAC E SYSTEM LYMPHOCYTES 44 18 - 53 % INTERFAC E SYSTEM MONOCYTES 6 2 - 13 % INTERFACE SYSTEM EOSINOPHILS 2 2 - 12 % INTERFAC E SYSTEM BASOPHILS 1 0 - 3 % INTERFACE SYSTEM NEUTROPHIL ABSOLUTE 2.60 K/uL INTERFACE SYSTEM LYMPHOCYTE ABSOLUTE 2.34 K/uL INTERFACE SYSTEM MONOCYTE ABSOLUTE 0.31 K/uL INTERFACE SYSTEM EOSINOPHIL ABSOLUTE 0.09 K/uL INTERFACE SYSTEM BASOPHILS ABSOLUTE 0.03 K/uL INTERFACE SYSTEM 05/22/2005 9:15 AM CDT us Lindsey Santa MD HEMATOLOGY ORDERABLES Final Res ult Performing Organization Address [facility] Co de Phone Number INTERFACE SYSTEM Refer to clinic/hospital department * CBC WITH DIFFERENTIAL (05/22/2005 9:15 AM CDT) WBC 5.4 4.0 - 9.8 K/uL INTERFACE SYSTEM RBC 4.81 3.90 - 4.90 M/uL INTERFACE SYSTEM HEMOGLOBIN 13.7 11.8 - 14.8 g/dL INTERFACE SYSTEM HEMATOCRIT 41.5 35.5 - 44.0 % INTERFACE SYSTEM MCV 86.3 82.0 - 99.0 fL INTERFACE SYSTEM MCH 28.5 27.2 - 32.6 pg INTERFACE SYSTEM MCHC 33.0 31.5 - 35.5 % INTERFACE SYSTEM RDW 12.7 11.5 - 14.5 % INTERFACE SYSTEM RDW-STDEV 40.6 37.1 - 48.7 fL INTERFACE SYSTEM PLATELETS 250 140 - 350 K/uL INTERFACE SYSTEM MPV 10.8 9.3 - 12.4 fL INTERFACE SYSTEM 05/22/2005 9:15 AM CDT Lindsey Santa MD HEMATOLOGY ORDERABLES Final Res ult Performing Organization Address [facility] Phone Number INTERFACE SYSTEM Refer to clinic/hospital department * TSH (05/22/2005 9:15 AM CDT) TSH 2.47 0.27 - 4.20 uU/mL INTERFACE SYSTEM 05/22/2005 9:15 AM CDT Lindsey Santa MD CHEMISTRY ORDERABLES Final Resu lt Performing Organization Address [facility] Phone Number INTERFACE SYSTEM Refer to clinic/hospital department * CHOLESTEROL TOTAL (05/22/2005 9:15 AM CDT) CHOLESTEROL 150 90 - 169 mg/dL INTERFACE SYSTEM Comment: Cholesterol Adult ATP III Classification: Desirable < 200 mg/dL Borderline 200 - 239 mg/dL High >= 240 mg/dL Cholesterol Pediatric NCEP Classification (<20 years): Desirable < 170 mg/dL Borderline 170 - 199 mg/dL High >= 200 mg/dL 05/22/2005 9:15 AM CDT us Lindsey Santa MD CHEMISTRY ORDERABLES Final Resu lt Performing Organization Address [facility] [place] Phone Number INTERFACE SYSTEM Refer to clinic/hospital department * (ABNORMAL) LIPID PANEL (05/22/2005 9:15 AM CDT) CHOLESTEROL 150 90 - 169 mg/dL INTERFACE SYSTEM TRIGLYCERIDE 173(H) 38 - 135 mg/dL INTERFACE SYSTEM HDL 47 37 - 75 mg/dL INTERFACE SYSTEM LDL CALCULATED 68 <=109 mg/dL INTERFACE SYSTEM CHOL/HDL RATIO 3.2 2.0 - 5.0 INTER FACE SYSTEM Comment:See interpretive grady a section for risk classifications. LIPID PANEL COMMENT See below INTERFACE SYSTEM Comment: Adult ATP III Classifications: Cholesterol (mg/dL) Triglyceride (mg/dL) Desirable <200 Normal <150 Borderline 200 - 239 Borderline High 150 - 199 High >=240 High 200 - 499 Very High >=500 HDL Cholesterol (mg/dL) LDL (mg/dL) Low (increased risk) <40 Optimal <100 High (reduced risk) >=60 Near or above optimal 100 - 129 Borderline 130 - 159 High 160 - 189 Very High >=190 LDL calculation is not accurate if Triglycerides are greater than 400 mg /dL Pediatric NCEP Classifications: Cholesterol(<20 years),(mg/dL) Triglyceride Desirable <170 Pediatric classification Borderline 170 - 199 not defined. High >=200 HDL (<5 years) LDL (mg/dL) No Reference Range Established Desirable <110 Borderline 110 - 129 High >=130 05/22/2005 9:15 AM CDT us Lindsey Santa MD CHEMISTRY ORDERABLES Final Resu lt INTERFACE SYSTEM Refer to clinic/hospital department * (ABNORMAL) COMPREHENSIVE METABOLIC PANEL (05/22/2005 9:15 AM CDT) GLUCOSE 90 60 - 110 mg/dL INTERFACE SYSTEM CREATININE 0.6 0.4 - 1.2 mg/dL INTERFACE SYSTEM CALCIUM 9.5 8.4 - 10.2 mg/dL INTERFACE SYSTEM AST 17 12 - 32 U/L INTERFACE SYSTEM ALKALINE PHOSPHATASE 192(H) 35 - 187 U/L INTERFACE SYSTEM BUN 11 6 - 20 mg/dL INTERFACE SYSTEM BILIRUBIN TOTAL 0.3 0.2 - 1.0 mg/dL INTERFACE SYSTEM ALBUMIN 4.4 3.8 - 5.4 g/dL INTERFACE SYSTEM TOTAL PROTEIN 7.2 6.3 - 8.6 g/dL INTERFACE SYSTEM ALT 21 0 - 31 U/L INTERFACE SYSTEM SODIUM 140 135 - 145 mmol/L INTERFACE SYSTEM POTASSIUM 3.9 3.5 - 4.9 mmol/L INTERFACE SYSTEM CHLORIDE 104 96 - 108 mmol/L INTERFACE SYSTEM CO2 27 22 - 30 mmol/L INTERFACE SYSTEM 05/22/2005 9:15 AM CDT us Lindsey Santa MD CHEMISTRY ORDERABLES Final Resu lt INTERFACE SYSTEM Refer to clinic/hospital department documented in this encounter Visit Diagnoses Diagnosis Other malaise and fatigue- Primary documented in this encounter Care Teams Automobile Body Customizer Relationship Specialty Start Date End Date Suha Baker MD PCP - General Internal Medicine 04/20/13 documented as of this encounter
--- OUTSIDE RECORDS SUMMARY | 2025-01-29 06:04 | XMS_ITS | Clinical Summary ---
Author Organization [facility] Administrative Offices Address [address] [place] [address] Care Team Providers Care Carpenter Prototype Name Role Phone Suha Baker MD Primary Care Provider [phone] Allergies No known active allergies Medications cetirizine-pseud oephedrine sr 12 hour (ZyrTEC-D) 5-120 mg tablet Take 1 Tab by mouth 1 time daily as needed. Active desogestreL-ethi nyl estradioL (ORTHO-CEPT) 0.15-0.03 mg Tablet Take 1 Tab by mouth daily. 04/20/2013 Active loratadine (CLARITIN) 10 mg tablet 01/05/2021 Active Active Problems Problem Noted Date Diagnosed Date Anal fissure 06/26/2014 Seasonal allergic rhinitis 06/11/2010 Scoliosis 06/10/2009 Overview (06/10/2009): Was followed by orthopedics but discharged from their care. Immunizations Immunization Administration Dates Next Due (ADACEL/BOOSTRIX)(10 YR UP) TDAP VACCINE, 0.5ML, IM 06/10/2009 (GARDASIL)(9-45 YRS) HUMAN PAPILLOMAVIRUS VACCINE, TYPES 6, 11, 16, 18, QUADRIVALENT (4VHPV), 3 DOSE, IM 02/07/2008,08/29/2007,06/22/2007 (INFANRIX)(6 WKS-6 YRS) DIPT HERIA, TETANUS TOXOIDS, AND ACCELLULAR PERTUSSIS VACCINE (DTAP), 0.5 ML IM 02/22/1997,09/21/1993,1992,05/30,1992 (M-M-R II/PRIORIX)(12 MO UP) MEASLES, MUMPS AND RUBELLA VIRUS VACCINE, 0.5 ML IM/SUBCUT 02/22/1997,06/05/1993 (TDVAX)(7 YRS UP) TETANUS AN D DIPHTHERIA TOXOIDS, ADSORBED (2 LF OF TETANUS TOXOID AND 2 LF OF DIPHTHERIA TOXOID), 0.5ML (PF), IM 07/03/2003 (TENIVAC)(7 YRS UP) TETANUS AND DIPHTHERIA TOXOIDS, ADSORBED (5 LF OF TETANUS TOXOID AND 2 LF OF DIPHTHERIA TOXOID), 0.5ML (PF), IM 02/09/2022 HIB, Unspecified Formulation 09/21/1993,02/06/19 93,1992 Hepatitis A Vaccine 05/30/2008,06/22/2007 Hepatitis B Vaccine 09/21/1993,1992,1991 History of Chickenpox 02/05/1993 Influenza Seasonal Unspecifi ed Formulation IM 09/25/2020 Meningococcal ACWY Vaccine, Unspecified Formulation 04/26/2006 Poliovirus Vaccine Live Oral 02/22/1997, 09/21/1993,1992,03/28 Family History Medical History Relation Name Comments Hypertension Father Healthy Mother Healthy Sister 1 Healthy Sister 2 Breast Cancer Neg Hx Colon Cancer Neg Hx Diabetes Neg Hx Heart Disease Neg Hx Osteoporosis Neg Hx Relation Name Status Comments Father Alive Mother Alive Sister 1 Alive Sister 2 Alive Social History Tobacco Use Types Packs/Day Years Used Date Smoking Tobacco: Never Alcohol Use Standard Drinks/Week Comments Not Asked 0.8 (1 standard drink = 0.6 oz p ure alcohol) Comments No Sex and Gender Information Value Date Recorded Sex Assigned at Not on file Legal Sex Female 5:13 AM TRANSCRIPTION TYPIST Gender Identity Not on file Sexual Orientation Not on file Occupation Industry Job Start Date Job End Date Not on file Not on file Not on file Not on file Last Filed Vital Signs Vital Sign Reading Time Taken Comments Blood Pressure 116/62 02/09/2022 10:50 AM CDT Pulse 82 02/09/2022 10:50 AM CDT Temperature 36.8 C (98.2 F) 02/09/2022 10:50 AM CDT Respiratory Rate 16 01/07/2020 9:58 AM TRANSCRIPTION TYPIST Oxygen Saturation 98% 02/09/2022 10:50 AM CDT Inhaled Oxygen Concentration - - Weight 81.6 kg (180 lb) 02/09/2022 10:50 AM CDT Height 167.6 cm (5' 6 ) 02/09/2022 10:50 AM CDT Body Mass Index 29.05 02/09/2022 10:50 AM CDT Plan of Treatment Health Maintenance Due Date Last Done Comments PAP SMEAR 01/30/2013 HPV/Cotest 01/30/2022 INFLUENZA VACCINE (#1) 2024 , 09/25/2020, 11/16/2018 COVID-19 Vaccine (2023-2 5 season) 2024 02/23/2021, 01/29/2021 Preventative Visit- Commercial 11/07/2024 0 02/09/2022, 02/20/2021, 04/20/2013, Additional history exists CERVICAL CANCER SCREENING 12/14/2024 PAP SMEAR 12/14/2024 12/14/2021 (Prev iously completed), 04/18/2012 DTAP/TDAP/TD VACCINES (8 - T d or Tdap) 02/10/2032 02/09/2022, 06/10/2009, 07/03/2003, Additional history exists HEPATITIS B VACCINES Completed 09/21/1993, 1992, 1992 HPV VACCINES Completed 02/07/2008, 08/08, 06/22/2007 Insurance [facility] [id number] Advance Directives For more information, please contact: [phone] * Full Code (Latest Code Status on File) Date Activated Date Inactivated Comments 09/12/2014 6:34 AM 09/12/2014 12:49 PM Care Teams Carpenter Prototype Relationship Specialty Start Date End Date Suha Baker MD PCP - General Internal Medicine 04/20/13
--- OUTSIDE RECORDS SUMMARY | 2025-01-29 06:04 | XMS_ITS | Encounter Summary ---
Author Organization [facility] Address [address] [place] [address] Care Team Providers Care Branch Logistics Supervisor Name Role Phone Suha Baker MD Primary Care Provider [phone] Encounter Details Date Type Department Care Team (Late st Contact Info) Description 07/22/2004 Outpatient Historical [facility] Pediatrics - Medical [place] [address] [facility] [address] [address] Lindsey Santa MD [address] [place] [address] Social History Tobacco Use Types Packs/Day Years Used Date Smoking Tobacco: Never Assessed Comments Unknown Sex and Gender Information Value Date Recorded Sex Assigned at Not on file Legal Sex Female 5:13 AM HEAD STRENGTH AND CONDITIONING COACH Gender Identity Not on file Sexual Orientation Not on file documented as of this encounter Plan of Treatment Not on file documented as of this encounter Visit Diagnoses Not on filedocumented in this encounter Care Teams Branch Logistics Supervisor Relationship Specialty Start Date End Date Suha Baker MD PCP - General Internal Medicine 04/20/13 documented as of this encounter
--- OUTSIDE RECORDS SUMMARY | 2025-01-29 06:04 | XMS_ITS | Encounter Summary ---
Author Organization [facility] Address [address] [place] [address] Care Team Providers Care Sighter Name Role Phone Suha Baker MD Primary Care Provider [phone] Encounter Details Date Type Department Care Team (Late st Contact Info) Description 01/17/2004 Outpatient Historical [facility] Pediatrics - [facility] [address] [facility] [address] [address] Anaid Robertson MD NO ADDRESS ON FILE Social History Tobacco Use Types Packs/Day Years Used Date Smoking Tobacco: Never Assessed Comments Unknown Sex and Gender Information Value Date Recorded Sex Assigned at Not on file Legal Sex Female 5:13 AM FLEX O WRITER OPERATOR Gender Identity Not on file Sexual Orientation Not on file documented as of this encounter Plan of Treatment Not on file documented as of this encounter Visit Diagnoses Not on filedocumented in this encounter Care Teams Sighter Relationship Specialty Start Date End Date Suha Bakre MD PCP - General Internal Medicine 04/20/13 documented as of this encounter
--- OUTSIDE RECORDS SUMMARY | 2025-01-29 06:04 | XMS_ITS | Encounter Summary ---
Author Organization [facility] Address [address] [place] [address] Care Team Providers Care Thinner Sprayer Name Role Phone Suha Baker MD Primary Care Provider [phone] Encounter Details Date Type Department Care Team (Late st Contact Info) Description 05/26/1999 Outpatient Historical [facility] Pediatrics - Medical [place] [address] [facility] [address] [address] Ulises Michaud MD [address] [facility] [id number] [place] [address] Social History Tobacco Use Types Packs/Day Years Used Date Smoking Tobacco: Never Assessed Comments Unknown Sex and Gender Information Value Date Recorded Sex Assigned at Not on file Legal Sex Female 5:13 AM NETWORK MANAGER Gender Identity Not on file Sexual Orientation Not on file documented as of this encounter Plan of Treatment Not on file documented as of this encounter Visit Diagnoses Not on filedocumented in this encounter Care Teams Thinner Sprayer Relationship Specialty Start Date End Date Suha Baker MD PCP - General Internal Medicine 04/20/13 documented as of this encounter
--- OUTSIDE RECORDS SUMMARY | 2025-01-29 06:04 | XMS_ITS | Encounter Summary ---
Author Organization [facility] Address [address] [place] [address] Care Team Providers Care Gaming Associate Name Role Phone Suha Baker MD Primary Care Provider [phone] Encounter Details Date Type Department Care Team (Latest Contact Info) Description 01/05/1999 Outpatient Historical [facility] Marco Michael MD [address] [place] [address] Acute pharyngitis (Primary Dx) Social History Tobacco Use Types Packs/Day Years Used Date Smoking Tobacco: Never Assessed Comments Unknown Sex and Gender Information Value Date Recorded Sex Assigned at Not on file Legal Sex Female 5:13 AM HORTICULTURE/FLORICULTURE TEACHER Gender Identity Not on file Sexual Orientation Not on file documented as of this encounter Plan of Treatment Not on file documented as of this encounter Visit Diagnoses Diagnosis Acute pharyngitis- Primary documented in this encounter Care Teams Gaming Associate Relationship Specialty Start Date End Date Suha Baker MD PCP - General Internal Medicine 04/20/13 documented as of this encounter
--- OUTSIDE RECORDS SUMMARY | 2025-01-29 06:04 | XMS_ITS | Encounter Summary ---
Author Organization [facility] Address [address] [place] [address] Care Team Providers Care Gear Machine Operator Name Role Phone Suha Baker MD Primary Care Provider [phone] Encounter Details Date Type Department Care Team (Late st Contact Info) Description 08/30/2002 Outpatient Historical [facility] Pediatrics - [facility] [address] [facility] [address] [place] [address] Marco Michael MD [address] [facility] [address] [place] [address] Social History Tobacco Use Types Packs/Day Years Used Date Smoking Tobacco: Never Assessed Comments Unknown Sex and Gender Information Value Date Recorded Sex Assigned at Not on file Legal Sex Female 5:13 AM MANAGER SUPPLY CHAIN Gender Identity Not on file Sexual Orientation Not on file documented as of this encounter Plan of Treatment Not on file documented as of this encounter Visit Diagnoses Not on filedocumented in this encounter Care Teams Gear Machine Operator Relationship Specialty Start Date End Date Suha Baker MD PCP - General Internal Medicine 04/20/13 documented as of this encounter
--- OUTSIDE RECORDS SUMMARY | 2025-01-29 06:04 | XMS_ITS | Encounter Summary ---
Author Organization [facility] Address [address] [place] [address] Care Team Providers Care Front Load Trash Truck Driver Name Role Phone Suha Baker MD Primary Care Provider [phone] Encounter Details Date Type Department Care Team (Late st Contact Info) Description 06/22/2007 Outpatient Historical [facility] Pediatrics - [facility] [address] [facility] [address] [place] [address] Marco Michael MD [address] [facility] [address] [place] [address] Social History Tobacco Use Types Packs/Day Years Used Date Smoking Tobacco: Never Assessed Comments Unknown Sex and Gender Information Value Date Recorded Sex Assigned at Not on file Legal Sex Female 5:13 AM MANAGER DRUG SAFETY Gender Identity Not on file Sexual Orientation Not on file documented as of this encounter Plan of Treatment Not on file documented as of this encounter Visit Diagnoses Not on filedocumented in this encounter Care Teams Front Load Trash Truck Driver Relationship Specialty Start Date End Date Suha Baker MD PCP - General Internal Medicine 04/20/13 documented as of this encounter
--- OUTSIDE RECORDS SUMMARY | 2025-01-29 06:04 | XMS_ITS | Encounter Summary ---
Author Organization [facility] Address [address] [place] [address] Care Team Providers Care Survey Supervisor Name Role Phone Suha Baker MD Primary Care Provider [phone] Encounter Details Date Type Department Care Team (Late st Contact Info) Description 06/25/2003 Outpatient Historical [facility] Pediatrics - Medical [place] [address] [facility] [address] [address] Lindsey Santa MD [address] [place] [address] Social History Tobacco Use Types Packs/Day Years Used Date Smoking Tobacco: Never Assessed Comments Unknown Sex and Gender Information Value Date Recorded Sex Assigned at Not on file Legal Sex Female 5:13 AM FIRER LOCOMOTIVE CRANE Gender Identity Not on file Sexual Orientation Not on file documented as of this encounter Plan of Treatment Not on file documented as of this encounter Visit Diagnoses Not on filedocumented in this encounter Care Teams Survey Supervisor Relationship Specialty Start Date End Date Suha Baker MD PCP - General Internal Medicine 04/20/13 documented as of this encounter
--- OUTSIDE RECORDS SUMMARY | 2025-01-29 06:04 | XMS_ITS | Encounter Summary ---
Author Organization [facility] Address [address] [place] [address] Care Team Providers Care Bag Machine Operator Name Role Phone Suha Baker MD Primary Care Provider [phone] Encounter Details Date Type Department Care Team (Late st Contact Info) Description 04/19/2006 Outpatient Historical [facility] Pediatrics - Medical [place] [address] [facility] [address] [address] Lindsey Santa MD [address] [place] [address] Social History Tobacco Use Types Packs/Day Years Used Date Smoking Tobacco: Never Assessed Comments Unknown Sex and Gender Information Value Date Recorded Sex Assigned at Not on file Legal Sex Female 5:13 AM POLICE SERVICE TECHNICIAN Gender Identity Not on file Sexual Orientation Not on file documented as of this encounter Plan of Treatment Not on file documented as of this encounter Visit Diagnoses Not on filedocumented in this encounter Care Teams Bag Machine Operator Relationship Specialty Start Date End Date Suha Baker MD PCP - General Internal Medicine 04/20/13 documented as of this encounter
--- OUTSIDE RECORDS SUMMARY | 2025-01-29 06:04 | XMS_ITS | Encounter Summary ---
Author Organization [facility] Address [address] [place] [address] Care Team Providers Care Cancer Program Consultant Name Role Phone Suha Baker MD Primary Care Provider [phone] Encounter Details Date Type Department Care Team (Late st Contact Info) Description 01/30/1999 Outpatient Historical [facility] Pediatrics - [facility] [address] [facility] [address] [address] Lindsey Santa MD [address] [place] [address] Social History Tobacco Use Types Packs/Day Years Used Date Smoking Tobacco: Never Assessed Comments Unknown Sex and Gender Information Value Date Recorded Sex Assigned at Not on file Legal Sex Female 5:13 AM DIRECTOR OF OUTPATIENT SERVICES Gender Identity Not on file Sexual Orientation Not on file documented as of this encounter Plan of Treatment Not on file documented as of this encounter Visit Diagnoses Not on filedocumented in this encounter Care Teams Cancer Program Consultant Relationship Specialty Start Date End Date Suha Baker MD PCP - General Internal Medicine 04/20/13 documented as of this encounter
--- OUTSIDE RECORDS SUMMARY | 2025-01-29 06:04 | XMS_ITS | Encounter Summary ---
Author Organization [facility] Address [address] [place] [address] Care Team Providers Care Belt Back Operator Name Role Phone Suha Baker MD Primary Care Provider [phone] Encounter Details Date Type Department Care Team (Late st Contact Info) Description 06/25/2003 Outpatient Historical [facility] Pediatrics - Medical [place] [address] [facility] [address] [address] Lindsey Santa MD [address] [place] [address] Social History Tobacco Use Types Packs/Day Years Used Date Smoking Tobacco: Never Assessed Comments Unknown Sex and Gender Information Value Date Recorded Sex Assigned at Not on file Legal Sex Female 5:13 AM CITY MAGISTRATE Gender Identity Not on file Sexual Orientation Not on file documented as of this encounter Plan of Treatment Not on file documented as of this encounter Visit Diagnoses Not on filedocumented in this encounter Care Teams Belt Back Operator Relationship Specialty Start Date End Date Suha Baker MD PCP - General Internal Medicine 04/20/13 documented as of this encounter
--- OUTSIDE RECORDS SUMMARY | 2025-01-29 06:04 | XMS_ITS | Encounter Summary ---
Author Organization [facility] Address [address] [place] [address] Care Team Providers Care Pharmacy Intake Coordinator Name Role Phone Suha Baker MD Primary Care Provider [phone] Encounter Details Date Type Department Care Team (Late st Contact Info) Description 03/23/1999 Outpatient Historical [facility] Pediatrics - [facility] [address] [facility] [address] [address] Lindsey Santa MD [address] [place] [address] Social History Tobacco Use Types Packs/Day Years Used Date Smoking Tobacco: Never Assessed Comments Unknown Sex and Gender Information Value Date Recorded Sex Assigned at Not on file Legal Sex Female 5:13 AM ASSISTED LIVING HOME DIRECTOR Gender Identity Not on file Sexual Orientation Not on file documented as of this encounter Plan of Treatment Not on file documented as of this encounter Visit Diagnoses Not on filedocumented in this encounter Care Teams Pharmacy Intake Coordinator Relationship Specialty Start Date End Date Suha Baker MD PCP - General Internal Medicine 04/20/13 documented as of this encounter
--- OUTSIDE RECORDS SUMMARY | 2025-01-29 06:04 | XMS_ITS | Encounter Summary ---
Author Organization [facility] Address [address] [place] [address] Care Team Providers Care Application Support Administrator Name Role Phone Suha Baker MD Primary Care Provider [phone] Encounter Details Date Type Department Care Team (Late st Contact Info) Description 05/24/2001 Outpatient Historical [facility] Pediatrics - Medical [place] [address] [facility] [address] [address] Lindsey Santa MD [address] [place] [address] Social History Tobacco Use Types Packs/Day Years Used Date Smoking Tobacco: Never Assessed Comments Unknown Sex and Gender Information Value Date Recorded Sex Assigned at Not on file Legal Sex Female 5:13 AM BARREL LINE OPERATOR Gender Identity Not on file Sexual Orientation Not on file documented as of this encounter Plan of Treatment Not on file documented as of this encounter Visit Diagnoses Not on filedocumented in this encounter Care Teams Application Support Administrator Relationship Specialty Start Date End Date Suha Baker MD PCP - General Internal Medicine 04/20/13 documented as of this encounter
--- OUTSIDE RECORDS SUMMARY | 2025-01-29 06:04 | XMS_ITS | Encounter Summary ---
Author Organization [facility] Address [address] [place] [address] Care Team Providers Care Earthmoving Labourer Name Role Phone Suha Baker MD Primary Care Provider [phone] Encounter Details Date Type Department Care Team (Late st Contact Info) Description 01/04/2005 Outpatient Historical [facility] Pediatrics - Medical [place] [address] [facility] [address] [address] Lindsey Santa MD [address] [place] [address] Social History Tobacco Use Types Packs/Day Years Used Date Smoking Tobacco: Never Assessed Comments Unknown Sex and Gender Information Value Date Recorded Sex Assigned at Not on file Legal Sex Female 5:13 AM CURRICULUM SPECIALIST Gender Identity Not on file Sexual Orientation Not on file documented as of this encounter Plan of Treatment Not on file documented as of this encounter Visit Diagnoses Not on filedocumented in this encounter Care Teams Earthmoving Labourer Relationship Specialty Start Date End Date Suha Baker MD PCP - General Internal Medicine 04/20/13 documented as of this encounter
--- OUTSIDE RECORDS SUMMARY | 2025-01-29 06:04 | XMS_ITS | Encounter Summary ---
Author Organization [facility] Address [address] [place] [address] Care Team Providers Care Sergeant Of Corrections Name Role Phone Suha Baker MD Primary Care Provider [phone] Encounter Details Date Type Department Care Team (Late st Contact Info) Description 07/26/2005 Outpatient Historical [facility] Pediatrics - Medical [place] [address] [facility] [address] [address] Lindsey Santa MD [address] [place] [address] Social History Tobacco Use Types Packs/Day Years Used Date Smoking Tobacco: Never Assessed Comments Unknown Sex and Gender Information Value Date Recorded Sex Assigned at Not on file Legal Sex Female 5:13 AM SECOND BUTLER Gender Identity Not on file Sexual Orientation Not on file documented as of this encounter Plan of Treatment Not on file documented as of this encounter Visit Diagnoses Not on filedocumented in this encounter Care Teams Sergeant Of Corrections Relationship Specialty Start Date End Date Suha Baker MD PCP - General Internal Medicine 04/20/13 documented as of this encounter
--- OUTSIDE RECORDS SUMMARY | 2025-01-29 06:04 | XMS_ITS | Encounter Summary ---
Author Organization [facility] Address [address] [place] [address] Care Team Providers Care X Ray Electronics Wireman Name Role Phone Suha Baker MD Primary Care Provider [phone] Encounter Details Date Type Department Care Team (Latest Contact Info) Description 07/26/2005 Outpatient Historical [facility] Lindsey Harrison MD [address] [place] [address] THORACOGENIC SCOLIOSIS (Primary Dx) Social History Tobacco Use Types Packs/Day Years Used Date Smoking Tobacco: Never Assessed Comments Unknown Sex and Gender Information Value Date Recorded Sex Assigned at Not on file Legal Sex Female 5:13 AM PUBLIC RELATIONS WRITER Gender Identity Not on file Sexual Orientation Not on file documented as of this encounter Plan of Treatment Not on file documented as of this encounter Visit Diagnoses Diagnosis Thoracogenic scoliosis- Primary documented in this encounter Care Teams X Ray Electronics Wireman Relationship Specialty Start Date End Date Suha Baker MD PCP - General Internal Medicine 04/20/13 documented as of this encounter
--- OUTSIDE RECORDS SUMMARY | 2025-01-29 06:04 | XMS_ITS | Encounter Summary ---
Author Organization [facility] Address [address] [place] [address] Care Team Providers Care Recruit Instructor Name Role Phone Suha Baker MD Primary Care Provider [phone] Encounter Details Date Type Department Care Team (Late st Contact Info) Description 04/26/2006 Outpatient Historical [facility] Pediatrics - Medical [place] [address] [facility] [address] [address] Lindsey Santa MD [address] [place] [address] Social History Tobacco Use Types Packs/Day Years Used Date Smoking Tobacco: Never Assessed Comments Unknown Sex and Gender Information Value Date Recorded Sex Assigned at Not on file Legal Sex Female 5:13 AM PROFILER HAND Gender Identity Not on file Sexual Orientation Not on file documented as of this encounter Plan of Treatment Not on file documented as of this encounter Visit Diagnoses Not on filedocumented in this encounter Care Teams Recruit Instructor Relationship Specialty Start Date End Date Suha Baker MD PCP - General Internal Medicine 04/20/13 documented as of this encounter
--- OUTSIDE RECORDS SUMMARY | 2025-01-29 06:04 | XMS_ITS | Encounter Summary ---
Author Organization [facility] Address [address] [place] [address] Care Team Providers Care Wet Char Conveyor Tender Name Role Phone Suha Baker MD Primary Care Provider [phone] Encounter Details Date Type Department Care Team (Late st Contact Info) Description 06/22/2007 Outpatient Historical [facility] Pediatrics - [facility] [address] [facility] [address] [place] [address] Marco Michael MD [address] [facility] [address] [place] [address] Social History Tobacco Use Types Packs/Day Years Used Date Smoking Tobacco: Never Assessed Comments Unknown Sex and Gender Information Value Date Recorded Sex Assigned at Not on file Legal Sex Female 5:13 AM ARTIFICIAL MARBLE WORKER Gender Identity Not on file Sexual Orientation Not on file documented as of this encounter Plan of Treatment Not on file documented as of this encounter Visit Diagnoses Not on filedocumented in this encounter Care Teams Wet Char Conveyor Tender Relationship Specialty Start Date End Date Suha Baker MD PCP - General Internal Medicine 04/20/13 documented as of this encounter
--- OUTSIDE RECORDS SUMMARY | 2025-01-29 06:04 | XMS_ITS | Encounter Summary ---
Author Organization [facility] Address [address] [place] [address] Care Team Providers Care Asic Design Engineer Name Role Phone Suha Baker MD Primary Care Provider [phone] Encounter Details Date Type Department Care Team (Late st Contact Info) Description 01/16/2007 Outpatient Historical [facility] Pediatrics - Medical [place] [address] [facility] [address] [address] Lindsey Santa MD [id number] [place] [address] Social History Tobacco Use Types Packs/Day Years Used Date Smoking Tobacco: Never Assessed Comments Unknown Sex and Gender Information Value Date Recorded Sex Assigned at Not on file Legal Sex Female 5:13 AM RESIDENTIAL FEE APPRAISER Gender Identity Not on file Sexual Orientation Not on file documented as of this encounter Plan of Treatment Not on file documented as of this encounter Visit Diagnoses Not on filedocumented in this encounter Care Teams Asic Design Engineer Relationship Specialty Start Date End Date Suha Baker MD PCP - General Internal Medicine 04/20/13 documented as of this encounter
--- OUTSIDE RECORDS SUMMARY | 2025-01-29 06:04 | XMS_ITS | Encounter Summary ---
Author Organization [employer] Address [address] [place] [address] Care Team Providers Care Clinical Services Specialist Name Role Phone Suha Baker MD Primary Care Provider [phone] Encounter Details Date Type Department Care Team (Latest Contact Info) Description 01/17/2004 Outpatient Historical [facility], [address] Lindsey Santa MD [address] [place] [id number] ACUTE PHARYNGITIS (Primary Dx) Social History Tobacco Use Types Packs/Day Years Used Date Smoking Tobacco: Never Assessed Comments Unknown Sex and Gender Information Value Date Recorded Sex Assigned at Not on file Legal Sex Female 5:13 AM PLANT UTILITIES ENGINEER Gender Identity Not on file Sexual Orientation Not on file documented as of this encounter Plan of Treatment Not on file documented as of this encounter Visit Diagnoses Diagnosis Acute pharyngitis- Primary documented in this encounter Care Teams Clinical Services Specialist Relationship Specialty Start Date End Date Suha Baker MD PCP - General Internal Medicine 04/20/13 documented as of this encounter
--- OUTSIDE RECORDS SUMMARY | 2025-01-29 06:04 | XMS_ITS | Encounter Summary ---
Author Organization [employer] Address [address] [place] [address] Care Team Providers Care Crime Data Specialist Name Role Phone Suha Baker MD Primary Care Provider [phone] Encounter Details Date Type Department Care Team (Latest Contact Info) Description 10/22/2003 Outpatient Historical [facility] Man Salazar MD NO ADDRESS ON FILE ACUTE PHARYNGITIS (Primary Dx) Social History Tobacco Use Types Packs/Day Years Used Date Smoking Tobacco: Never Assessed Comments Unknown Sex and Gender Information Value Date Recorded Sex Assigned at Not on file Legal Sex Female 5:13 AM LIMOUSINE DRIVER Gender Identity Not on file Sexual Orientation Not on file documented as of this encounter Plan of Treatment Not on file documented as of this encounter Visit Diagnoses Diagnosis Acute pharyngitis- Primary documented in this encounter Care Teams Crime Data Specialist Relationship Specialty Start Date End Date Suha Baker MD PCP - General Internal Medicine 04/20/13 documented as of this encounter
--- OUTSIDE RECORDS SUMMARY | 2025-01-29 06:04 | XMS_ITS | Encounter Summary ---
Author Organization [employer] Address [address] [place] [address] Care Team Providers Care Manager Molecular Name Role Phone Suha Baker MD Primary Care Provider [phone] Encounter Details Date Type Department Care Team (Latest Contact Info) Description 07/12/2002 Outpatient Historical [facility], MAIN [facility] Man Salazar MD NO ADDRESS ON FILE ACUTE PHARYNGITIS (Primary Dx) Social History Tobacco Use Types Packs/Day Years Used Date Smoking Tobacco: Never Assessed Comments Unknown Sex and Gender Information Value Date Recorded Sex Assigned at Not on file Legal Sex Female 5:13 AM UX INFORMATION ARCHITECT Gender Identity Not on file Sexual Orientation Not on file documented as of this encounter Plan of Treatment Not on file documented as of this encounter Visit Diagnoses Diagnosis Acute pharyngitis- Primary documented in this encounter Care Teams Manager Molecular Relationship Specialty Start Date End Date Suha Baker MD PCP - General Internal Medicine 04/20/13 documented as of this encounter
--- OUTSIDE RECORDS SUMMARY | 2025-01-29 06:04 | XMS_ITS | Encounter Summary ---
Author Organization [facility] Address [address] [place] [address] Care Team Providers Care Software Engineering Specialist Name Role Phone Suha Baker MD Primary Care Provider [phone] Encounter Details Date Type Department Care Team (Late st Contact Info) Description 08/05/[address] [facility] Pediatrics - Medical [place] [address] [facility] [address] [address] Lindsey Santa MD [address] [place] [address] Social History Tobacco Use Types Packs/Day Years Used Date Smoking Tobacco: Never Assessed Comments Unknown Sex and Gender Information Value Date Recorded Sex Assigned at Not on file Legal Sex Female 5:13 AM VENDOR REPRESENTATIVES Gender Identity Not on file Sexual Orientation Not on file documented as of this encounter Plan of Treatment Not on file documented as of this encounter Visit Diagnoses Not on filedocumented in this encounter Care Teams Software Engineering Specialist Relationship Specialty Start Date End Date Suha Baker MD PCP - General Internal Medicine 04/20/13 documented as of this encounter
--- OUTSIDE RECORDS SUMMARY | 2025-01-29 06:04 | XMS_ITS | Encounter Summary ---
Author Organization [employer] Address 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
--- OUTSIDE RECORDS SUMMARY | 2025-01-29 06:04 | XMS_ITS | Encounter Summary ---
Author Organization [employer] Address 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
--- OUTSIDE RECORDS SUMMARY | 2025-01-29 06:04 | XMS_ITS | Encounter Summary ---
Author Organization [facility] Address [address] [place] [address] Care Team Providers Care Curriculum Assistant Name Role Phone Suha Baker MD Primary Care Provider [phone] Encounter Details Date Type Department Care Team (Late st Contact Info) Description 03/12/2002 Outpatient Historical [facility] Pediatrics - Medical [place] [address] [facility] [address] [address] Lindsey Santa MD 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
--- OUTSIDE RECORDS SUMMARY | 2025-01-29 06:04 | XMS_ITS | Encounter Summary ---
Author Organization [facility] Address [address] [place] [address] Care Team Providers Care Rn Surgical Pcu Name Role Phone Suha Baker MD Primary Care Provider [phone] Encounter Details Date Type Department Care Team (Late st Contact Info) Description 12/01/2000 Outpatient Historical [facility] Pediatrics - [facility] [address] [facility] [address] [address] Anaid Robertson MD NO ADDRESS ON FILE Social History Tobacco Use Types Packs/Day Years Used Date Smoking Tobacco: Never Assessed Comments Unknown Sex and Gender Information Value Date Recorded Sex Assigned at Not on file 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
--- OUTSIDE RECORDS SUMMARY | 2025-01-29 06:04 | XMS_ITS | Encounter Summary ---
Author Organization [facility] Address [address] [place] [address] Care Team Providers Care Pharmacy Affairs Assistant Name Role Phone Suha Baker MD Primary Care Provider [phone] Encounter Details Date Type Department Care Team (Late st Contact Info) Description 10/24/[address] 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
--- OUTSIDE RECORDS SUMMARY | 2025-01-29 06:04 | XMS_ITS | Encounter Summary ---
Author Organization [facility] Address [address] [place] [address] Care Team Providers Care Parachute Marker Name Role Phone Suha Baker MD Primary Care Provider [phone] Encounter Details Date Type Department Care Team (Late st Contact Info) Description 07/12/2002 Outpatient Historical [facility] Pediatrics - [facility] [address] [facility] [address] [address] Man Salazar MD NO ADDRESS ON FILE Social History Tobacco Use Types Packs/Day Years Used Date Smoking Tobacco: Never Assessed Comments Unknown Sex and Gender Information Value Date Recorded Sex Assigned at Not on file Legal Sex Female 5:13 AM CLIENT SERVICE REPRESENTATIVE Gender Identity Not on file Sexual Orientation Not on file documented as of this encounter Plan of Treatment Not on file documented as of this encounter Visit Diagnoses Not on filedocumented in this encounter Care Teams Parachute Marker Relationship Specialty Start Date End Date Suha Baker MD PCP - General Internal Medicine 04/20/13 documented as of this encounter
--- OUTSIDE RECORDS SUMMARY | 2025-01-29 06:04 | XMS_ITS | Encounter Summary ---
Author Organization [employer] Address [address] [place] [address] Care Team Providers Care Gearman Name Role Phone Suha Baker MD Primary Care Provider [phone] Encounter Details Date Type Department Care Team (Latest Contact Info) Description 04/14/2009 Outpatient Historical [facility] Marco Way MD [address] [place] [address] [address] [place] [address] Dang Mercer, RD CarinEbony, RD [address] [place] [address] Obesity, Unspecified Social History Tobacco Use Types Packs/Day Years Used Date Smoking Tobacco: Never Assessed Comments Unknown Sex and Gender Information Value Date Recorded Sex Assigned at Not on file Legal Sex Female 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
--- OUTSIDE RECORDS SUMMARY | 2025-01-29 06:04 | XMS_ITS | Encounter Summary ---
Author Organization [facility] Address [address] [place] [address] Care Team Providers Care Supervisor Pleating Name Role Phone Suha Baker MD Primary Care Provider [phone] Encounter Details Date Type Department Care Team (Late st Contact Info) Description 07/03/2003 Outpatient Historical [facility] Pediatrics - Medical [place] [address] [facility] [address] [address] Lindsey Santa MD [address] [place] [address] Social History Tobacco Use Types Packs/Day Years Used Date Smoking Tobacco: Never Assessed Comments Unknown Sex and Gender Information Value Date Recorded Sex Assigned at Not on file Legal Sex Female 5:13 AM COAT MAKER Gender Identity Not on file Sexual Orientation Not on file documented as of this encounter Plan of Treatment Not on file documented as of this encounter Visit Diagnoses Not on filedocumented in this encounter Care Teams Supervisor Pleating Relationship Specialty Start Date End Date Suha Baker MD PCP - General Internal Medicine 04/20/13 documented as of this encounter
--- OUTSIDE RECORDS SUMMARY | 2025-01-29 06:04 | XMS_ITS | Encounter Summary ---
Author Organization [facility] Address [address] [place] [address] Care Team Providers Care Traffic Controller Cable Name Role Phone Suha Baker MD Primary Care Provider [phone] Encounter Details Date Type Department Care Team (Late st Contact Info) Description 05/13/2007 Outpatient Historical [facility] Pediatrics - [facility] [address] [facility] [address] [address] Anaid Robertson MD NO ADDRESS ON FILE Social History Tobacco Use Types Packs/Day Years Used Date Smoking Tobacco: Never Assessed Comments Unknown Sex and Gender Information Value Date Recorded Sex Assigned at Not on file Legal Sex Female 5:13 AM INFECTIOUS DISEASES PHYSICIAN Gender Identity Not on file Sexual Orientation Not on file documented as of this encounter Plan of Treatment Not on file documented as of this encounter Visit Diagnoses Not on filedocumented in this encounter Care Teams Traffic Controller Cable Relationship Specialty Start Date End Date Suha Baker MD PCP - General Internal Medicine 04/20/13 documented as of this encounter
--- OUTSIDE RECORDS SUMMARY | 2025-01-29 06:04 | XMS_ITS | Encounter Summary ---
Author Organization [facility] Address [address] [place] [address] Care Team Providers Care Registration Scheduling Specialist Name Role Phone Suha Baker MD Primary Care Provider [phone] Encounter Details Date Type Department Care Team (Latest Contact Info) Description 01/16/2007 Outpatient Historical [facility] Pediatrics - [facility] [address] [facility] [address] [address] Lindsey Santa MD [address] 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
--- OUTSIDE RECORDS SUMMARY | 2025-01-29 06:04 | XMS_ITS | Encounter Summary ---
Author Organization [employer] Address [address] [place] [address] Care Team Providers Care Configuration Management Administrator Name Role Phone Suha Baker MD Primary Care Provider [phone] Encounter Details Date Type Department Care Team (Latest Contact Info) Description 01/04/2005 Outpatient Historical [facility], [address] Lindsey Santa MD [address] [place] [address] ACUTE PHARYNGITIS (Primary Dx) Social History Tobacco Use Types Packs/Day Years Used Date Smoking Tobacco: Never Assessed Comments Unknown Sex and Gender Information Value Date Recorded Sex Assigned at Not on file Legal Sex Female 5:13 AM CHILD'S NURSE Gender Identity Not on file Sexual Orientation Not on file documented as of this encounter Plan of Treatment Not on file documented as of this encounter Visit Diagnoses Diagnosis Acute pharyngitis- Primary documented in this encounter Care Teams Configuration Management Administrator Relationship Specialty Start Date End Date Suha Baker MD PCP - General Internal Medicine 04/20/13 documented as of this encounter
--- NOTE | 2025-01-29 06:48 | LDADM ---
This patient, Ree Fang, was admitted to Labor/Delivery/Recovery 104 on 01/29/25 at 05:58. Plans for labor, pain management and were discussed with patient. Patient/family oriented to hospital policies and general routines including ID bracelet, bed and alarms, visiting hours, pain management, procedures, bathroom and other care routines, personal items, smoking policy, room service/diet and guest tray routines, security routines, and visiting hours. Patient/Family are encouraged to report perceived risks to care and to ask questions if they do not understand what they are told or what they should do. See OBIX for further documentation.
[2025-01-29 07:02] LABS: Basophils Percent Auto 0.3 % (0.2-1.2); Eosinophils Absolute Auto 0.1 K/mm3 (0-0.3); Eosinophils Percent Auto 0.9 % (0-4.4); Hematocrit 34.6 % (37.0-47.0); Hemoglobin 11.4 g/dL (12.0-15.0); Immature Granulocyte Absolute 0.14 K/mm3 (0.00-0.031); Immature Granulocyte Percent A 1.3 % (0-0.5); Lymphocytes Absolute Auto 2.62 K/mm3 (0.9-3.2); Lymphocytes Percent Auto 23.7 % (18.3-44.2); Mean Corpuscular HGB Conc 32.9 g/dl (32-36); Mean Corpuscular Hemoglobin 29.4 pg (26-34); Mean Corpuscular Volume 89.2 fl (80-100); Monocytes Absolute Auto 0.9 K/mm3 (0.1-0.6); Neutrophils Absolute Auto 7.3 K/mm3 (1.3-6.7); Neutrophils Percent Auto 65.8 % (45.5-73.1); Platelet Count Result 210 k/mm3 (150-375); Red Blood Count 3.88 M/mm3 (4.2-5.4); Red Cell Distribution Width 14.2 % (11.5-14.5); White Blood Count 11.1 K/mm3 (4.5-10.0)
[2025-01-29] MEDS: miSOPROStol 25 MCG TABLET 50 MCG VAGINAL (07:11)
--- NOTE | 2025-01-29 07:17 | WPDANESEPP ---
Anes - Eval Pre Procedure Procedure: labor epidural Date/Time: 01/29/25 07:17 Surgeon: lizbet Preop Diagnosis: pain during labor Pre Op Diagnosis: IOL Patient Data Age: 34 Gender: F Height: 1.68 m Weight: 94 kg Last Vital Signs Pulse 103 H 01/29/25 07:01 BP 111/70 01/29/25 07:01 O2 Del Method Room Air 01/29/25 06:46 Allergies Allergy/AdvReac Type Severity Reaction Status Date / Time No Known Allergies Allergy Verified 01/28/25 14:20 Home Medications ?Medication ?Instructions ?Recorded ?Confirmed ?Type vitamins-iron fumarate 65 1 tablet PO DAILY 06/07/22 01/29/25 History mg iron-folic acid 1 mg tablet Laboratory Tests 01/29/25 06:55 WBC 11.1 H K/mm3 (4.5-10.0) RBC 3.88 L M/mm3 (4.2-5.4) Hgb 11.4 L g/dL (12.0-15.0) Hct 34.6 L % (37.0-47.0) MCV 89.2 fl (80-100) MCH 29.4 pg (26-34) MCHC 32.9 g/dl (32-36) RDW 14.2 % (11.5-14.5) Plt Count 210 k/mm3 (150-375) MPV 11.0 H fl (7.4-10.4) Immature Gran % (Auto) 1.3 H % (0-0.5) Neut % (Auto) 65.8 % (45.5-73.1) Lymph % (Auto) 23.7 % (18.3-44.2) Sharkey % (Auto) 8.0 % (2.6-8.5) Eos % (Auto) 0.9 % (0-4.4) Baso % (Auto) 0.3 % (0.2-1.2) Lymph # (Auto) 2.62 K/mm3 (0.9-3.2) Sharkey # (Auto) 0.9 H K/mm3 (0.1-0.6) Eos # (Auto) 0.1 K/mm3 (0-0.3) Baso # (Auto) 0.0 K/mm3 (0.0-0.1) Abs Immat Gran (auto) 0.14 H K/mm3 (0.00-0.031) Absolute Neuts (auto) 7.3 H K/mm3 (1.3-6.7) Absolute Nucleated RBC 0.000 K/mm3 (0.0-0.012) Nucleated RBC % 0.0 % (0.0-0.2) HIV 1&2 Ab/P24 Ag 4thGn Pending Patient hx anesthesia problems: none Family hx anesthesia problems: none Results Review: All pre-operative results and documents have been reviewed as part of the pre-operative evaluation. [facility] Past Medical History Medical History Obesity (BMI 30-39.9) IUP (intrauterine ), incidental Amenorrhea Surgical History Surgical History H/O removal of cyst cyst removed from chest on left side / Benign Family History Family History Father Hypertension Social History Social History Smoking status: Never smoker Second hand tobacco smoke exposure: No Alcohol intake: never Substance use: never Substance use type: does not use Do You Feel Safe in your Home?: Yes Lack of Transportation: No Lack of Food: Never True Current Housing: I Have Housing Concerned About Future Housing: No Difficulty Paying Gas/Electric Bills: No Difficulty Paying for Meds: No Currently Unemployed: No Education: Bachelor's Degree Difficulty w/ Childcare or Family Care: No Living arrangements: with family Additional living arrangements comments: Occupation/Education: occupation 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
[2025-01-29 07:51] LABS: HIV 1/2 Ab P24 Ag Result Negative (Negative)
--- NOTE | 2025-01-29 07:59 | WPDHPUPDATE1 ---
History and Physical Update Update Date/Time: 01/29/25 07:59 34 yo who presents at 39w0d for IOL for LGA. History and Physical has been reviewed, including an updated exam of the patient. There are NO changes in the patient's condition. Risks, benefits, and alternatives have been discussed and questions answered. Patient agrees to proceed with procedure. A/P: admit to L&D routine admission orders Rh+ GBS+ will need abx in labor LGA plan for cytotec IOL followed by pitocin augmentation continuous EFM
[2025-01-29] MEDS: AMPICILLIN 2 GM/NS 100 ML 2 GM/100 ML BAG IVPB (08:09)
[2025-01-29] MEDS: LACTATED RINGERS 1,000 ML 125 ML IV CONT ×2 (08:09→14:07)
[2025-01-29 09:43] LABS: Syphilis IgG/IgM Antibody Negative (Negative)
[2025-01-29] MEDS: OXYTOCIN 30 UNITS/NS 500 ML 30 UNITS/500 ML BAG IV CONT (11:22)
--- NOTE | 2025-01-29 11:33 | PM.OBPNLAB ---
Pain Control Date/time seen: 01/29/25 11:33 Pain control: tolerating well Pelvic Exam Dilation (cm): 2 Effacement (%): 50 station: -3 Amniotic membrane status: Intact Contractions Monitor mode: External Contraction pattern: Regular Contraction intensity: Moderate Status status: Category l Assessment and Plan Pitocin rate (mU/min): 2 Assessment: induction ongoing Plan: continuous present management Comments: Cooks cervical balloon placed with 40 mL of saline in each balloon. Patient tolerated well. Patient to have epidrual PRN
[2025-01-29] MEDS: AMPICILLIN 1 GM/NS 50 ML 1 GM/50 ML BAG IVPB ×2 (12:07→16:43)
[2025-01-29] MEDS: miSOPROStol 200 MCG TABLET 1000 MCG (18:47)
--- NOTE | 2025-01-29 18:49 | PM.OBPRVD ---
OB - Vaginal Delivery Note Procedure Delivery date: 01/29/25 Events: Macrosomia Induction method: Per Misoprostol Protocol Delivery augmentation: Rupture of Membranes and Pitocin Delivery monitor: External FHT and External Uterine Route of delivery: Episiotomy description: None Laceration Description: Perineal - 2nd Degree Delivery repair: vicryl Specimen: No Quantitative Blood Loss (ml): 150 Anesthesia type: Epidural Disposition: Floor Complications: No immediate complications Narrative: Patient pushed for a spontaneous vaginal delivery. The fetus was delivered atraumatically and placed on the maternal abdomen. The cord was clamped and cut after 1 minute of life. The cord was double clamped and cut and a segment of cord was collected for cord gases. Cord blood was collected for blood type and Coomb's testing. The placenta delivered spontaneously and was noted to be intact. The perineum was inspected and second degree perineal laceration was noted. The laceration extended deep in the vagina but did not involved the rectal sphincter. A series of interrupted sutures of 2-0 vicryl were placed in the deep layer of the laceration to close any space. The apex of the laceration was identified and the remainder of the laceration was repaired with 3-0 vicryl in the usual fashion. Fundal massage was performed and the uterus palpated firm. A small amount of bleeding was noted from the uterus. Given the size of the baby and the short second stage of labor, discussed the risks for hemorrhage. 1000 mcg of cytotec was placed per rectum to prevent hemorrhage. [place] Baby Date of : 01/29/25 Time of : 18:25 Gestational Age by Date: 39 gender: Male presentation: vertex position: Right Occiput Anterior Placenta delivery description: Spontaneous Cord Vessel Description: 3 Vessels score one minute: 8 score five minutes: 9
[2025-01-29] MEDS: OXYTOCIN 30 UNITS/NS 500 ML 30 UNITS/500 ML BAG 125 UNITS IV CONT (18:56)
[2025-01-29] MEDS: SENNA/DOCUSATE SODIUM TABLET 2 TAB PO (20:15)
[2025-01-29] MEDS: WITCH HAZEL 40 PADS 1 PAD TOPICAL (20:15)
[2025-01-29] MEDS: BENZOCAINE 20% AER SPR (*SP) 56 GM CAN 1 SPRAY TOPICAL (20:15)
--- NOTE | 2025-01-29 21:20 | OBPPTRN ---
Patient transferred to post room #290 via wheelchair. Support person present. Oriented to unit, room, information board, rooming in, admission packet and security measures. Patient verbalizes understanding.
[2025-01-30 00:40] VITALS: BP 92/60; PULSE 95; RESP 18; TEMP 36.9; O2SAT 99
[2025-01-30] MEDS: IBUPROFEN 600 MG TABLET PO (01:40)
[2025-01-30 05:01] LABS: Hematocrit 33.6 % (37.0-47.0); Hemoglobin 11.1 g/dL (12.0-15.0)
[2025-01-30 07:45] VITALS: BP 113/78; PULSE 78; RESP 18; TEMP 37; O2SAT 97
--- NOTE | 2025-01-30 07:47 | PM.OBPNVD ---
OB - PN: Subj Subjective Date/time seen: 01/30/25 07:47 Patient comments: no complaints, pain well controlled and tolerating diet [place] feeding status: exclusively breast feeding Narrative: patient doing well this AM. No complaints. Pain is well controlled. She reports minimal bleeding. She is ambulating and voiding without difficulty. She is tolerating PO. She denies N/V, fever, chills. OB - PN: Obj Data Labs 01/30/25 03:54 Labs: Laboratory Results - last 24 hr 01/29/25 01/30/25 06:55 03:54 Hgb 11.1 L Hct 33.6 L Syphilis IgG/IgM Ab Negative HIV 1&2 Ab/P24 Ag 4thGn Negative Blood Type A Positive Antibody Screen Negative OB - PN A/P Plan day: 1 Plan: routine care Comments: patient doing well H/H stable pt desires circumcision. risks, benefits, alternatives reviewed will plan for infant circumcision continue routine care Time Spent With Patient Time: Total time spent is greater than 50% in coordination of care (as documented) at patient's floor/unit and/or counseling patient: Time with patient: less than 15 minutes Review of Systems Review of Systems: All systems reviewed & are unremarkable except as noted in HPI and below Exam Const: General: comfortable and no acute distress Resp: Effort & Inspection: normal respiratory effort Cardio: Rate: regular rate GI: GI Palp: Yes Soft to palpation and No Tenderness to palpation present (GI) Auscultation: normal bowel sounds Other: fundus firm and below umbilicus. Psych: Affect: normal affect
[2025-01-30] MEDS: MULTIVIT/MIN/PREN/FOL AC/IRON TABLET 1 TAB PO (09:06)
[2025-01-30] MEDS: DOCUSATE SODIUM 100 MG CAPSULE PO (09:06)
--- NOTE | 2025-01-30 10:55 | PC.NURSE ---
Introductions were made, then consulted with patient to assess needs related to . Discussed with mother her?plans to feed?her and the?experience so far. Mom states that baby has a shallow latch and is very sleepy at feedings. We reviewed normal behavior. Mom states that she makes the c hold with her breast to assist with latching. Encouraged her that this is a great technique to use for a deeper latch. Advised her to call out for feeding assistance and a latch check today. Resources provided for inpatient and outpatient services with the feeding sheet, mom/baby guide and name/number written on the communication board. Mother voiced understanding of information and will call if there is a request for assistance. Reported to the Primary RN.
[2025-01-30 12:27] VITALS: BP 113/76; PULSE 77; RESP 16; TEMP 36.8; O2SAT 99
[2025-01-31 00:15] VITALS: BP 114/78; PULSE 88; RESP 18; TEMP 36.6; O2SAT 99
[2025-01-31] MEDS: IBUPROFEN 600 MG TABLET PO ×2 (00:15→07:57)
--- NOTE | 2025-01-31 06:03 | P.DS_ITS ---
DS: Admitting Diagnosis Discharge Date 01/31/25 Admitting Diagnosis intrauterine at term LGA DS: Discharge Diagnosis Discharge Diagnosis (1) Normal vaginal delivery: Code(s): O80 - Encounter for full-term uncomplicated delivery Status: Acute OB - DS: Summary OB Procedures : None OB Procedures Intrapartum: Spontaneous Vag Delivery OB Procedures: : None Peripartum Data Laceration Description: Perineal - 2nd Degree Episiotomy description: None Status at Discharge Functional status at discharge: independent ambulation Overall status at discharge: patient is back to baseline Time Spent with Patient Time attestation: Total time spent providing and/or coordinating discharge services: Time spent: Less than 30 minutes Exam Const: General: comfortable and no acute distress Resp: Effort & Inspection: normal respiratory effort Auscultation: clear to auscultation bilaterally Cardio: Rate: regular rate GI: GI Palp: Yes Soft to palpation Auscultation: normal bowel sounds Other: Fundus firm below umbilicus Psych: Appearance: grossly normal Mental Status: mental status grossly normal Affect: normal affect Discharge Plan Discharge Attending physician on discharge: Luís Villalobos Discharging Clinician: Luís Villalobos Activity: as tolerated and pelvic rest Diet: regular Patient Instructions: Vaginal Delivery (DC) Patient Language: Ethiopian Follow-up/Referrals: Luís Villalobos MD [Physician] - Discharge Medications: New sennosides-docusate sodium [Senokot-S] 8.6-50 mg Tablet 2 tab PO HS Qty: 60 0RF ibuprofen 600 mg tablet 600 mg PO Q6H PRN (Reason: pain) Qty: 30 0RF acetaminophen 500 mg tablet 500 mg PO Q6H PRN (Reason: pain) Qty: 30 0RF Continued vit-iron fum-folic ac 65 mg iron- 1 mg tablet 1 tablet PO DAILY Date of admission: 01/29/25 05:58 Primary Care Provider: UNKNOWN,DOCTOR Admitting Provider: Luís Villalobos Attending physician on admission: Luís Villalobos
[2025-01-31] MEDS: DOCUSATE SODIUM 100 MG CAPSULE PO (07:58)
[2025-01-31] MEDS: MULTIVIT/MIN/PREN/FOL AC/IRON TABLET 1 TAB PO (07:58)
[2025-01-31 08:00] VITALS: BP 113/77; PULSE 95; RESP 18; TEMP 37.1; O2SAT 98
--- NOTE | 2025-01-31 10:08 | PC.NURSE ---
Consulted with mother concerning needs and she shared her ability to independently latch infant optimally without pain. Mother is feeding appropriately for growth of and understands stimulating to eat if needed. Infant has had appropriate feedings in the last 24 hours meets the outcomes for weight, output, blood sugar and jaundice at this time. Reinforced understanding of milk production, transition of milk, signs of adequate intake, transition of stool, prevention/relief of engorgement, plugged ducts, mastitis, responsive watching for feeding cues, the different methods of stimulating to breastfeed 1-3 hours after the start of the last feeding, reminded that baby's lips should be flanged out when latched and not rolled in, community resources, and when to call a provider using the resource of the feeding sheet along with the mom and baby guide. Mother voiced understanding of the information shared, is confident to continue effectively her at home, when to call for assistance, denies any additional assistance or education at this time. Reported to the Primary RN.
[2025-02-01 11:15] VITALS: BP 119/67; PULSE 84; RESP 18; TEMP 36.9; O2SAT 100
== END 2025-01-31 10:55 | disposition home or self-care (01) | DRG 807 ==
LOC: ANHLDR 06:21 → ANHOB2 23:54
PROVIDERS: Admitting Provider Student in an Organized Health Care Education/Training Program; Visit Provider Student in an Organized Health Care Education/Training Program
DX: O36.63X0 Maternal care for excessive fetal growth, third trimester, not applicable or unspecified (principal); Z37.0 Single live birth; O99.824 Streptococcus B carrier state complicating childbirth; O70.1 Second degree perineal laceration during delivery; Z3A.39 39 weeks gestation of pregnancy
CPT/HCPCS: 36415; 85014; 85018; 85025; 86593; 86703; 86850; 86900; 86901; A9270; G0432; J0290; J2590; J2795; J7120